=== PATIENT | female | born 1975 | race Caucasian/White ===

== ENCOUNTER 2021-08-16 09:50 | Outpatient (REF) | payer BC, SELFPAY ==
--- NOTE | 2021-08-16 09:00 | PAPFT_PTH ---
PATIENT: Malorie London LOC: [facility] U#:[id number] AGE/SX: 46/F ROOM: RE08/16/[address]: PARKER Faith : 1975 BED: DIS: 08/16/2021 SPEC #: [id number] RECD: 08/16/21 12:56 STATUS: ROBERTO REQ #: [id number] STUART: 08/16/21 09:[address]: Shayy Grider DEPT: [facility] Cytology RECD BY: Janis Hayes ENTERED: 08/16/21 12:56 SP TYPE: PAPFT WYATT DR: None Tissues: 1 - CX/ENDOCX FOR PAP SMEARS Procedures: PAP THIN PREP/UVM Screening HPV DNA PROBE Comments: [id number]
== END 2021-08-16 09:51 | disposition home or self-care (01) ==
LOC: LBN 09:50
PROVIDERS: Visit Provider Nurse Practitioner Family
DX: Z12.4 Encounter for screening for malignant neoplasm of cervix (principal); Z11.51 Encounter for screening for human papillomavirus (HPV); Z87.42 Personal history of other diseases of the female genital tract
CPT/HCPCS: 88142; 87624

== ENCOUNTER → 2021-11-29 00:45 | Outpatient (CLI) | payer BC, SELFPAY ==
--- OUTSIDE RECORDS SUMMARY | 2021-11-29 00:52 | XMS_ITS | Encounter Summary ---
:1975 Author Organization [facility] [place] [address] Care Team Providers Name Role Phone Sydni Blanc MD Primary Care Provider Reason for Visit Reason Comments Positive Screen For Neural Tube Defect Encounter Details Date Type Department Care Team Description 08/29/2010 Office Visit [facility] 3S Shirley Lerma, Other specified complication , antepartum (Primary Dx); [facility] [place] Abnormal findings on screening [place] [phone] [facility]YNECOLOG[facility] [place] [id number] Social History Tobacco Use Types Packs/Day Years Used Date Former Smoker Quit: 04/30/20 10 Alcohol Use Standard Drinks/Week Comments No 0 (1 standard drink = 0.6 oz pure alcoho l) Sex Assigned at Date Recorded Not on file documented as of this encounter Progress Notes Shirley Lerma, [place] - 08/29/2010 3:32 PM EDT 1. Elevated AFP: We discussed the association of elevated maternal serum AFP with neural tube defects and other anomalies, such abdominal wall defects and kidney abnormalities. We reviewed the options available to Malorie, including ultrasound and amniocentesis, and each of their risks, benefits, and limitations. We discussed that 90-95% of fetuses with an open neural tube defect are identifiedby a high resolution ultrasound, and amniocentesis increases the detection up to 98%. After our discussion, Malorie declined amniocentesis. We also discussed the association of an elevated maternal serum AFP and placental insufficiency, which may increase risks for IUGR, delivery, or stillbirth. We recommend that consideration be given to an ultrasound at 30-32 weeks to check growth. 2. Cystic fibrosis: The issue of cystic fibrosis carrier screening was not discussed today as it wasnoted in Malorie's OB chart that she had negative CF carrier screening in 2006. documented in this encounter Plan of Treatment Not on filedocumented as of this encounter Visit Diagnoses Diagnosis Other specified complication, antepartum (646.83) - Primary Other specified complication, antepartum Abnormal findings on screening documented in this encounter Care Teams Managed Security Sales Consultant Relationship Specialty Start Date End Date Sydni Blanc MD PCP - General 08/28/10 10/10/18 [address] [place] [address] documented as of this encounter
--- OUTSIDE RECORDS SUMMARY | 2021-11-29 00:52 | XMS_ITS | Encounter Summary ---
:1975 Author Organization [facility] [place] [address] Care Team Providers Name Role Phone Jake Pinzon APRN Primary Care Provider Reason for Visit Consultation (Routine) - Closed Specialty Diagnoses / Procedures Referred By Contact Refer red To Contact Rheumatology Diagnoses multiple joint pain Jake Pinzon APRN [facility] Rheumatology [facility] [place] [address] [place] [phone] Fax: Referral ID Status Reason Start Date Expiration Date Visits Requ ested Visits Authorized [id number] Closed 09/18/2018 09/18/2019 1 1 Encounter Details Date Type Department Care Team Description 10/11/2018 Office Visit Rheumatology at [facility] Lee Ann Cline, History of elevated antinucl ear antibody (RAMON); [facility] HARISH Arthralgia, [place] [address] Center [phone] [place], [place] [address] Social History Tobacco Use Types Packs/Day Years Used Date Former Smoker Quit: 04/30/20 10 Smokeless Tobacco: Never Used Alcohol Use Standard Drinks/Week Comments No 0 (1 standard drink = 0.6 oz pure alcoho l) Sex Assigned at Date Recorded Not on file documented as of this encounter Last Filed Vital Signs Vital Sign Reading Time Taken Comments Blood Pressure 121/67 10/11/2018 9:52 AM EDT Pulse 63 10/11/2018 9:52 AM EDT Temperature 37.1 ??C (98.7 ??F) 10/11/2018 9:52 AM EDT Respiratory Rate - - Oxygen Saturation 100% 10/11/2018 9:52 AM EDT Inhaled Oxygen Concentration - - Weight 93.4 kg (206 lb) 10/11/2018 9:52 AM EDT Height 160 cm (5' 3) 10/11/2018 9:52 AM EDT Body Mass Index 36.49 10/11/2018 9:52 AM EDT documented in this encounter Progress Notes Lee Ann Cline APRN - 10/11/2018 10:00 AM EDT Rheumatology Outpatient Consultation Note Reason for Consult: The patient is seen at the request of Jake Pinzon APRN for evaluation and treatment of polyarthralgia, myalgia, fatigue Chart review conducted prior to the visit includes review of PMHx, medications, allergies, and prioroffice notes. The most pertinent findings are listed below. August and September 2018 labs OSH: TSH, RF, CCP, CBC, BMP, vit D, hemogram wnl CRP: 0.35, with uln 0.30 RAMON 1:320 speckled History of Present Illness: Malorie Schuster is a 43 y.o. female who presents today for evaluation of aches, pain, fatigue and +RAMON. Extreme fatigue, upset stomach, weak limbs. Sometimes they get tingly and extremely weak and thenit goes away. Shoulders into arms, behind legs into knees, just hurt and ache. PIPs probably hurt the most, both side Sometimes back is fine, sometimes aches in lower back When she abducts her right shoulder, it catches This morning she is pretty good, some morning she wakes up stiff and sore, takes a while to loosen up. Has noticed a swelling in her knees but no warmth or redness. A little nausea at times, not severe She feels worse sometimes in the morning, sometimes at night Her fingers fingers are affected sometimes, just a little stiff, not problems with movement toes feel crampy and sore. This started 4-5 months ago. She notices that when she eats red meat, she feels worse. Her eyes are bloodshot, she feels like she is straining them, needs her glasses no contacts, needs to see eye doctor APAP does make her feel better, she takes 1000mg at a time, so will take 2000mg max per day. 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 Sxs have been getting worse she thinks She falls asleep well Her BF tells her she snores, no h/o sleep study; sometimes refreshed, sometimes not No IBD or IBS More joints than muscles she feels, though muscles can feel weak Not sensitive to touch She wonders if its in her head Rheumatic history (x) means positive Iritis Dactylitis Pleuritis Pericarditis Oral / Nasal Ulcers PE/DVT Spontaneous X 9wks and 6wk Discoid SLE STD Raynaud???s Psoriasis Seizures Anemia Leucopenia Thrombocytopenia Psychosis from a medical condition Health Care Maintenance Date Next Due Influenza vaccine Pneumonia vaccine TB Screen (PPD/QGA) DXA HCQ Eye Exam Viral Hepatitis Screen Review of Systems: X = positive response. Comments are only made for responses that are changed fromprevious, not discussed in HPI, or otherwise require clarification. Systemic Comments 1. Generalized pain X 2. Fatigue/tiredness X 3. Fevers [place] feverish a couple days ago, lasted a couple hours 4. Chills 5. Night sweats 6. Recent weight loss 7. Recent Weight gain Head and neck 8. Headaches 9. Neck pain/stiffness 10. Lymphadenopathy 11. 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 Gritty eyes 14. Eye pain 15. Photophobia 16. Oral sores 17. Xerostomia 18. Alopecia 19. Jaw claudication Cardiopulmonary 20. Chest discomfort 21. Dyspnea 22. Cough 23. Hemoptysis Gastrointestinal 24. Dysphagia 25. Heartburn 26. Nausea X 27. Emesis 28. Abdominal pain 29. Hematochezia 30. Diarrhea 31. Constipation Genitourinary 32. Hematuria 33. Dysuria Musculoskeletal 34. Muscle weakness X sometimes 35. Myalgia 36. Shoulder pain X 37. Raynaud's Neuropsychiatric 38. Paresthesia Mostly fingers and toes, comes and goes 39. Dysesthesia 40. Dizziness/vertigo 41. Anxiety X 42. Depression 43. Cognitive problems Brain fog here and there 44. Initial insomnia 45. Night awakenings X 46. Nonrestorative sleep X sometimes Dermatologic 47. Xerosis cutis 48. Photosensitivity 49. Rash A couple days ago, a couple flat pink dots on forearms that went away after a day PMHX Anxiety SurgHX ACL repair at 17 Ear tubes x3 Family Hx: No family history on file. M: leukemia F: anal CA siblings: (-)RA, (-)lupus, (-)scleroderma, (-)sjogren's, (-)gout Social Hx: Social History Socioeconomic History ??? Marital status: Single Spouse name: None ??? Number of children: None ??? Years of education: None ??? Highest education level: None Occupational History ??? None Social Needs ??? Financial resource strain: None ??? Food insecurity: Worry: None Inability: None ??? Transportation needs: Medical: None Non-medical: None Tobacco Use ??? Smoking status: Former Smoker Last attempt to quit: 04/30/2010 Years since quittin.4 ??? Smokeless tobacco: Never Used Substance and Sexual Activity ??? Alcohol use: No ??? Drug use: No ??? Sexual activity: Yes Partners: Male Lifestyle ??? Physical activity: Days per week: None Minutes per session: None ??? Stress: None Relationships ??? Social connections: Talks on phone: None Gets together: None Attends restorationist service: None Active member of club or organization: None Attends meetings of clubs or organizations: None Relationship status: None ??? Intimate partner violence: Fear of current or ex partner: None Emotionally abused: None Physically abused: None Forced sexual activity: None Other Topics Concern ??? None Social History Narrative ??? 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 The form is scanned into the patient's chart. Physical Examination: BP 121/67 Pulse 63 Temp 37.1 ??C (98.7 ??F) (Oral) Ht 160 cm (5' 3) Wt 93.4 kg (206 lb) SpO2 100% BMI 36.49 kg/m?? General: Alert and oriented. Well developed and nourished. The patient did not appear distressed or uncomfortable. The patient ambulated without difficulty or assistance. Head: Scalp: Appeared normal. Eyes: Mild injection bilaterally, PERRL Oral cavity: Buccal Mucosa showed no ulcer. Tongue did not have an ulcer. Salivary Glands: No xerostomia was observed. No parotid swelling noted. Pharynx: Pharynx did not have an ulcer. Lymph Nodes: Cervical, supraclavicular, submandibular, preauricular, posterior auricular and submental lymph nodes were non-palpable. Lungs: Respiration rhythm and depth was normal. Clear to auscultation without rales or wheezing. Work of breathing was not increased. Cardiovascular system: RRR Abdomen: Auscultation: Abdominal auscultation revealed no abnormalities. Palpation: Abdominal palpation revealed no abnormalities. No hepatosplenomegaly. Musculoskeletal system: (???NML?? means normal; No swelling, warmth, tenderness, loss of range of motion, or deformity as applicable) Hands: MCP???s: NML PIP???s: NML DIP???s: NML, full fist and claw Wrists: Slight ttp bl but no synovitis, nontender ROM Elbows: NML Shoulders: some ttp at ac joint on the L; tender internal rotation on the L, +hurd L, +empty can L, neg speeds yergason on the L; R wnl Cervical Spine: NML Thoracic Spine: NML Lumbosacral Spine: NML Hips: Mild ttp lat hips bl, NML Knees: Crepitus bl, otherwise NML Ankles: NML Feet: Mild ttp at mtps bl, no synovitis, neg mtp compression Nails: No nail pitting, onycholysis or periungual erythema noted. Some trauma at nailbeds but no cap dilation or drop Neurologic: Alert and oriented x3. Sensory & strength exams were normal. Skin: No rash seen Tender points at shoulders, elbows, hips, knees Laboratory Data: August and September 2018 labs OSH: TSH, RF, CCP, CBC, BMP, vit D, hemogram wnl CRP: 0.35, with uln 0.30 RAMON 1:320 speckled Today's pending Studies: L shoulder xray at OSH normal Impression/Recommendations : Malorie Schuster is a 43 y.o. female who presents today with complaint of wide spread arthralgias, fatigue, GI upset since May, in setting of RAMON 1:320 speckled at OSH. Her history is not strongly suggestive of an inflammatory arthritis, and there is no synovitis on exam today. Some ttp at wrists and mtps, but no swelling or warmth noted, and other tenderpoints at upper and lower extremities appreciated. She does not present with other s/sxs to suggest CTD dz e.g. no rash, sclerodactyly, ulcer, hair loss, dry eye or dry mouth, profound or persistent muscle weakness. We discussed that +RAMON can be found in the normal population, and only significant if pt presents with clinical manifestations. CRP very slightly elevated at OSH, could be d/t weight or a variety of other processes. No synovitisor other signs of inflammatory dz on exam so did not repeat today. I did redraw RAMON and CARLO in lightof +RAMON at OSH. I requested the pt let us know if she develops any new signs or sxs. I will call herwith lab results. TSH, RF, CCP, CBC, BMP, vit D, hemogram recently wnl at OSH. PE suggestive of RTC tendinopathy of the L shoulder. Wide spread pain, tenderpoints, fatigue, sleep issues, occasional nausea, anxiety, is suggestive of FMS. We discussed that this a dx of exclusion, but that exercise and sleep are best methods of management. Also briefly discussed some pharm tx options for FMS. Discussed that, should her lab work-up be unremarkable, she can further discuss FMS with PCP, and that PCP can manage. CC: Jake Pinzon APRN documented in this encounter Plan of Treatment Not on filedocumented as of this encounter Procedures Procedure Name Priority Date/Time Associated Diagnosis Comme nts EXTRACTABLE NUCLEAR Routine 10/11/2018 11:20 History of elevat ed Results for this ANTIGEN (CARLO) AB AM EDT antinuclear antibody pro cedure are in (RAMON) the results section. DNA ANTIBODY Routine 10/11/2018 11:20 Results for this (DOUBLE-STRANDED) AM EDT procedure are in the results section. RAMON Routine 10/11/2018 11:20 History of elevated Resu lts for this AM EDT antinuclear antibody procedu re are in (RAMON) the results section. documented in this encounter Results DNA Antibody (Double-Stranded) (10/11/2018 11:20 AM EDT) athologist Signature DNA Ab (DS) Neg Neg [facility] Specimen Anatomical Collection Method Collection Time Receive d Time (Source) Location / / Volume Laterality Blood specimen 10/11/2018 11:20 9 2:20 (specimen) AM EDT PM EDT Resulting Agency Comment Spec In Lab Lee Ann Cline APRN CHEMISTRY ORDERABLES Performing Organization Address City/State/ZIP [place] [address] Extractable Nuclear Antigen (CARLO) Ab (10/11/2018 11:20 AM EDT) Patholo gist Method Time Signature CARLO Ab [facility] Test ?Result ?Flag ??Unit ??RefValue [facility] Ab to Extractable Nuclear Ag Eval,S LABORATORY ??SS-A/Ro Ab, IgG, S ?0.3 ? U ? <1.0 (Negative) ??SS-B/La Ab, IgG, S ?<0.2 ?U ? <1.0 (Negative) ??Sm Ab, IgG, S ? 0.2 ? U ? <1.0 (Negative) ??REGIONAL BUSINESS DEVELOPMENT MANAGER Ab, IgG, S ?<0.2 ?U ? <1.0 (Negative) ??Scl 70 Ab, IgG, S ? <0.2 ?U ? <1.0 (Negative) ??Simona 1 Ab, IgG, S ? <0.2 ?U ? <1.0 (Negative) ?Test Performed by: ?[facility] ?[address] [place] [address] Specimen Anatomical Collection Method Collection Time Receive d Time (Source) Location / / Volume Laterality Blood specimen 10/11/2018 11:20 9 2:08 (specimen) AM EDT PM EDT Resulting Agency Comment Spec In Lab Lee Ann Cline APRN IMMUNOLOGY ORDERABLES Performing Organization Address City/State/ZIP [place] [address] (ABNORMAL) RAMON (LEB/CGP) (10/11/2018 11:20 AM EDT) athologist Signature RAMON Pos at Neg [facility] 1:80 (A) [facility] Comment: Titer seen with Speckled pattern. ??Is s uggestive of autoantibodies to Sm, REGIONAL BUSINESS DEVELOPMENT MANAGER, SCL-70, or SS-B. Specimen Anatomical Collection Method Collection Time Receive d Time (Source) Location / / Volume Laterality Blood specimen 10/11/2018 11:20 9 2:20 (specimen) AM EDT PM EDT Resulting Agency Comment Spec In Lab Lee Ann Cline APRN IMMUNOLOGY ORDERABLES Performing Organization Address City/State/ZIP [place] [address] documented in this encounter Visit Diagnoses Diagnosis History of elevated antinuclear antibody (RAMON) Arthralgia, unspecified joint documented in this encounter Care Teams Sports Book Writer Relationship Specialty Start Date End Date Jake Pinzon APRN PCP - General Family Medicine 10/11/[address] [place] [address] [place] [phone] documented as of this encounter
--- OUTSIDE RECORDS SUMMARY | 2021-11-29 00:52 | XMS_ITS | Encounter Summary ---
:1975 Author Organization [facility] [place] [address] Care Team Providers Name Role Phone Sydni Blanc MD Primary Care Provider Encounter Details Date Type Department Care Team Description 08/29/2010 Hospital Encounter Ultrasound at [facility], DR BRUNO [facility] [place] [address] Alyssa Rangel MD [address] [place], [place] [address] [phone] Social History Tobacco Use Types Packs/Day Years Used Date Former Smoker Quit: 04/30/20 10 Alcohol Use Standard Drinks/Week Comments No 0 (1 standard drink = 0.6 oz pure alcoho l) Sex Assigned at Date Recorded Not on file documented as of this encounter Medications at Time of Discharge Medication Sig Dispensed Refills Start Date End Date vitamin 27 & Take 1 tablet by 0 10/11/2018 [id number] 60 mg mouth daily. (Iron)-1 mg tablet documented as of this encounter Plan of Treatment Not on filedocumented as of this encounter Procedures Procedure Name Priority Date/Time Associated Comments Diagnosis US OB DETAILED Routine 08/29/2010 10:10 AM Result s for this MORPHOLOGY EDT procedure are i n the results section. documented in this encounter Results US OB TARGETED MORPHOLOGY (08/29/2010 10:10 AM EDT) Anatomical Region Laterality Modality Pelvis, Abdomen Ultrasound Specimen (Source) Anatomical Collection Method Collection Time Re ceived Time Location / / Volume Laterality 08/29/2010 10:10 AM EDT Addenda Addendum on 09/12/2010 1:47 PM EDT Addendum Begins ? OBSTETRICS REPORT ? (Corrected Final 09/12/2010 01 :46 pm) Patient Info ID: ?[id number] ?: ??[birth year] (35 yrs) Name: ?MALORIE LOPEZ ?Visit Date: 08/29/2010 09:49 am Performed By Performed By: ?? ARPITA Horan ??Donald campbell Attending: ?Jl GONZALEZ, Cora Perez Referred By: ?BRITTANIE Ochoa MD Accession#: ? [id number] Procedures [facility] - Targeted Morphology - Genetics - ? [id number] Indications Positive quad screen for NTD Evaluation Heart Rate: ??142 ? bpm Cardiac Activity: ??Observed, normal rh ythm Presentation: ?Cephalic Placenta: ?Posterior Nani l P. Cord ?Within Normal Limits Insertion: Amniotic Fluid NÉSTOR FV: ?Normal -------- Biometry -------- BPD: ?47.5 ??mm ?G. Age: ?? 20w 2d OFD: ?58 ??mm HC: ?166.7 ??mm ?G. Age: ?? 19w 3d AC: ?149.3 ??mm ?G. Age: ?? 20w 1d FL: ? 30.6 ??mm ?G. Age: ?? 19w 3d HUM: ?30.6 ??mm ?G. Age: ?? 20w 1d CER: ?19.8 ??mm ?G. Age: ?? 18w 6d NFT: ?3.41 ??mm NB: ?5 ??mm CI: ?81.9 ??% ? 70 - 86 FL/HC: ? 18.4 ??% ? 16.8 - 19.8 HC/AC: ? 1.12 ?1.09 - 1.39 FL/BPD: ?64.4 ??% FL/AC: ? 20.5 ??% ? 20 - 24 Est. FW: ? 315 ??gm ?0 lb 11 oz Gestational Age LMP: ? 21w 2d ?Date : ??04/02/10 ? CLAUDIA: ?? 01/07/11 U/S Today: ? 19w 6d ?CLAUDIA: ?? 01/17/11 Best: ?20w 0d ?? Det. By: ??Early ?CLAUDIA: ?? 01/16/11 ? Ultrasound ? (06/24/10) Targeted Anatomy Central Nervous System Calvarium: ?Within Norm al Limits Intracranial: ? Within Normal Limits Lat. Ventricles: ?Within Normal Limits Cerebellum: ? Within Jody l Limits Choroid Plexus: ? Within Normal Limits Cisterna Magna: ? Within Normal Limits Spine Cervical: ? Visualized Thoracic: ? Visualized Lumbar: ? Visualized Sacral: ? Visualized Head/Neck Face: ? Within No rmal Limits Nuchal Fold: ?Within Jody l Limits Thorax Four Chamber: ? Within Normal Limits Cardiac Motion: ? Normal Rhythm R Outflow Tract: ?Visualized L Outflow Tract: ?Visualized Aortic Arch: ?Visualized Ductal Arch: ?Visualized Cardiac Comstock: ? Visualized Diaphragm: ?Visualized Abdomen Ventral Wall: ? Visualized Stomach: ?Visualized Lt Kidney: ?Visualized Rt Kidney: ?Visualized Bladder: ?Visualized Extremities Lt Humerus: ? Within Nomal Limits Rt Humerus: ? Within Jody l Limits Lt Forearm: ? Within Jody l Limits Rt Forearm: ? Within Jody l Limits Lt Hand: ?Within Nor mal Limits Rt Hand: ?Within Nor mal Limits Lt Femur: ? Within Norm al Limits Rt Femur: ? Within Norm al Limits Lt Lower Leg: ? Within Normal Limits Rt Lower Leg: ? Within Normal Limits Lt Foot: ?Visualized Rt Foot: ?Visualized Other Umbilical Cord: ? 3 vessel cord Genitalia: ?Male Cord Insertion: ? WIthin Normal Limits Cervix Uterus Adnexa Uterus: ? Multiple fibroids, see comments. Left Ovary: ?? Visualized Right Ovary: ??Visualized ------ Myomas ------ Site ? L(cm) ? W(cm) ? D(cm) ? Location Anterior ? 2.1 ? 1.2 ? 1.7 Anterior Left ?5.4 ? 4 .9 ? 5.2 Lateral Anterior ? 1.5 ? 1.8 ? 1.6 Blood Flow ?RI ? PI ?Comments Impression 2nd Trimester - Targeted Morphology- Kincaid mmary Single intrauterine with a ge stational age of 20w 0d based on early ultrasound. Composite age based on the current ultr asound alone is 19w 6d. Amniotic fluid volume is normal. Current growth parameters are consisten t indicating normal growth. Detailed anatomic evaluation was performed and no structural abnormalities are noted. There is a 4.2 x 3.3 x 0.9 cm subchorio erica fluid collection likely a revolving hematoma. Impression: ??No apparent abnorma lity to account for the elevated MSAFP. I ??viewed the images and agree with joni ramos above interpretation. Thank you for allowing us to participat e in the care of MALORIE LOPEZ. Please do not hesitate to call if you have any questions. ?Alfred Parikh MD Electronically Signed Corrected Final Re port ??09/12/2010 01:46 pm Addendum Ends Addendum on 09/12/2010 1:47 PM EDT Addendum Begins ? OBSTETRICS REPORT ? (Corrected Final 09/12/2010 01 :46 pm) Patient Info ID: ?[id number] ?: ??[birth year] (35 yrs) Name: ?MALORIE LOPEZ ?Visit Date: 08/29/2010 09:49 am Performed By Performed By: ?? ARPITA Horan ??Donald campbell Attending: ?Jl GONZALEZ, Cora Perez Referred By: ?BRITTANIE Ochoa MD Accession#: ? [id number] Procedures [facility] - Targeted Morphology - Genetics - ? [id number] Indications Positive quad screen for NTD Evaluation Heart Rate: ??142 ? bpm Cardiac Activity: ??Observed, normal rh [facility] Presentation: ?Cephalic Placenta: ?Posterior Nani l P. Cord ?Within Normal Limits Insertion: Amniotic Fluid NÉSTOR FV: ?Normal -------- Biometry -------- BPD: ?47.5 ??mm ?G. Age: ?? 20w 2d OFD: ?58 ??mm HC: ?166.7 ??mm ?G. Age: ?? 19w 3d AC: ?149.3 ??mm ?G. Age: ?? 20w 1d FL: ? 30.6 ??mm ?G. Age: ?? 19w 3d HUM: ?30.6 ??mm ?G. Age: ?? 20w 1d CER: ?19.8 ??mm ?G. Age: ?? 18w 6d NFT: ?3.41 ??mm NB: ?5 ??mm CI: ?81.9 ??% ? 70 - 86 FL/HC: ? 18.4 ??% ? 16.8 - 19.8 HC/AC: ? 1.12 ?1.09 - 1.39 FL/BPD: ?64.4 ??% FL/AC: ? 20.5 ??% ? 20 - 24 Est. FW: ? 315 ??gm ?0 lb 11 oz Gestational Age LMP: ? 21w 2d ?Date : ??04/02/10 ? CLAUDIA: ?? 01/07/11 U/S Today: ? 19w 6d ?CLAUDIA: ?? 01/17/11 Best: ?20w 0d ?? Det. By: ??Early ?CLAUDIA: ?? 01/16/11 ? Ultrasound ? (06/24/10) Targeted Anatomy Central Nervous System Calvarium: ?Within Norm al Limits Intracranial: ? Within Normal Limits Lat. Ventricles: ?Within Normal Limits Cerebellum: ? Within Jody l Limits Choroid Plexus: ? Within Normal Limits Cisterna Magna: ? Within Normal Limits Spine Cervical: ? Visualized Thoracic: ? Visualized Lumbar: ? Visualized Sacral: ? Visualized Head/Neck Face: ? Within No rmal Limits Nuchal Fold: ?Within Jody l Limits Thorax Four Chamber: ? Within Normal Limits Cardiac Motion: ? Normal Rhythm R Outflow Tract: ?Visualized L Outflow Tract: ?Visualized Aortic Arch: ?Visualized Ductal Arch: ?Visualized Cardiac Comstock: ? Visualized Diaphragm: ?Visualized Abdomen Ventral Wall: ? Visualized Stomach: ?Visualized Lt Kidney: ?Visualized Rt Kidney: ?Visualized Bladder: ?Visualized Extremities Lt Humerus: ? Within Nomal Limits Rt Humerus: ? Within Jody l Limits Lt Forearm: ? Within Jody l Limits Rt Forearm: ? Within Jody l Limits Lt Hand: ?Within Nor mal Limits Rt Hand: ?Within Nor mal Limits Lt Femur: ? Within Norm al Limits Rt Femur: ? Within Norm al Limits Lt Lower Leg: ? Within Normal Limits Rt Lower Leg: ? Within Normal Limits Lt Foot: ?Visualized Rt Foot: ?Visualized Other Umbilical Cord: ? 3 vessel cord Genitalia: ?Male Cord Insertion: ? WIthin Normal Limits Cervix Uterus Adnexa Uterus: ? Multiple fibroids, see comments. Left Ovary: ?? Visualized Right Ovary: ??Visualized ------ Myomas ------ Site ? L(cm) ? W(cm) ? D(cm) ? Location Anterior ? 2.1 ? 1.2 ? 1.7 Anterior Left ?5.4 ? 4 .9 ? 5.2 Lateral Anterior ? 1.5 ? 1.8 ? 1.6 Blood Flow ?RI ? PI ?Comments Impression 2nd Trimester - Targeted Morphology- Kincaid mmary Single intrauterine with a ge stational age of 20w 0d based on early ultrasound. Composite age based on the current ultr asound alone is 19w 6d. Amniotic fluid volume is normal. Current growth parameters are consisten t indicating normal growth. Detailed anatomic evaluation was performed and no structural abnormalities are noted. There is a 4.2 x 3.3 x 0.9 cm subchorio erica fluid collection likely a revolving hematoma. Impression: ??No apparent abnorma lity to account for the elevated MSAFP. I ??viewed the images and agree with joni ramos above interpretation. Thank you for allowing us to participat e in the care of MALORIE LOPEZ. Please do not hesitate to call if you have any questions. ?Alfred Parikh MD Electronically Signed Corrected Final Re port ??09/12/2010 01:46 pm Addendum Ends Narrative 08/29/2010 10:11 AM EDT ? OBSTETRICS REPORT ? (Signed Final 08/29/2010 10 :09 am) Patient Info ID: ?[id number] ?: ??[birth year] (35 yrs) Name: ?MALORIE LOPEZ ?Visit Date: 08/29/2010 09:49 am Performed By Performed By: ?? ARPITA Horan ??Donald campbell Attending: ?Jl GONZALEZ, Cora Perez Referred By: ?BRITTANIE Ochoa MD Accession#: ? [id number] Procedures [facility] - Targeted Morphology - Genetics - ? [id number] Indications Positive quad screen for NTD Evaluation Heart Rate: ??142 ? bpm Cardiac Activity: ??Observed, normal rh ythm Presentation: ?Cephalic Placenta: ?Posterior Nani l P. Cord ?Within Normal Limits Insertion: Amniotic Fluid NÉSTOR FV: ?Normal -------- Biometry -------- BPD: ?47.5 ??mm ?G. Age: ?? 20w 2d OFD: ?58 ??mm HC: ?166.7 ??mm ?G. Age: ?? 19w 3d AC: ?149.3 ??mm ?G. Age: ?? 20w 1d FL: ? 30.6 ??mm ?G. Age: ?? 19w 3d HUM: ?30.6 ??mm ?G. Age: ?? 20w 1d CER: ?19.8 ??mm ?G. Age: ?? 18w 6d NFT: ?3.41 ??mm NB: ?5 ??mm CI: ?81.9 ??% ? 70 - 86 FL/HC: ? 18.4 ??% ? 16.8 - 19.8 HC/AC: ? 1.12 ?1.09 - 1.39 FL/BPD: ?64.4 ??% FL/AC: ? 20.5 ??% ? 20 - 24 Est. FW: ? 315 ??gm ?0 lb 11 oz Gestational Age LMP: ? 21w 2d ?Date : ??04/02/10 ? CLAUDIA: ?? 01/07/11 U/S Today: ? 19w 6d ?CLAUDIA: ?? 01/17/11 Best: ?20w 0d ?? Det. By: ??Early ?CLAUDIA: ?? 01/16/11 ? Ultrasound ? (06/24/10) Targeted Anatomy Central Nervous System Calvarium: ?Within Norm al Limits Intracranial: ? Within Normal Limits Lat. Ventricles: ?Within Normal Limits Cerebellum: ? Within Jody l Limits Choroid Plexus: ? Within Normal Limits Cisterna Magna: ? Within Normal Limits Spine Cervical: ? Visualized Thoracic: ? Visualized Lumbar: ? Visualized Sacral: ? Visualized Head/Neck Face: ? Within No rmal Limits Nuchal Fold: ?Within Jody l Limits Thorax Four Chamber: ? Within Normal Limits Cardiac Motion: ? Normal Rhythm R Outflow Tract: ?Visualized L Outflow Tract: ?Visualized Aortic Arch: ?Visualized Ductal Arch: ?Visualized Cardiac Comstock: ? Visualized Diaphragm: ?Visualized Abdomen Ventral Wall: ? Visualized Stomach: ?Visualized Lt Kidney: ?Visualized Rt Kidney: ?Visualized Bladder: ?Visualized Extremities Lt Humerus: ? Within Nomal Limits Rt Humerus: ? Within Jody l Limits Lt Forearm: ? Within Jody l Limits Rt Forearm: ? Within Jody l Limits Lt Hand: ?Within Nor mal Limits Rt Hand: ?Within Nor mal Limits Lt Femur: ? Within Norm al Limits Rt Femur: ? Within Norm al Limits Lt Lower Leg: ? Within Normal Limits Rt Lower Leg: ? Within Normal Limits Lt Foot: ?Visualized Rt Foot: ?Visualized Other Umbilical Cord: ? 3 vessel cord Genitalia: ?Male Cord Insertion: ? WIthin Normal Limits Cervix Uterus Adnexa Uterus: ? Multiple fibroids, see comments. Left Ovary: ?? Visualized Right Ovary: ??Visualized ------ Myomas ------ Site ? L(cm) ? W(cm) ? D(cm) ? Location Anterior ? 2.1 ? 1.2 ? 1.7 Anterior Left ?5.4 ? 4 .9 ? 5.2 Lateral Anterior ? 1.5 ? 1.8 ? 1.6 Blood Flow ?RI ? PI ?Comments Impression 2nd Trimester - Targeted Morphology- Kincaid mmary Single intrauterine with a ge stational age of 20w 0d based on early ultrasound. Composite age based on the current ultr asound alone is 19w 6d. Amniotic fluid volume is normal. Current growth parameters are consisten t indicating normal growth. Detailed anatomic evaluation was performed and no structural abnormalities are noted. There is a 4.2 x 3.3 x 0.9 cm hemorrhag e I ??viewed the images and agree with joni ramos above interpretation. Thank you for allowing us to participat e in the care of MALORIE LOPEZ. Please do not hesitate to call if you have any questions. ? Cora wilkinson MD Electronically Signed Final Report ?? 10:09 am Procedure Note Cora Parikh MD - 09/12/2010Formattin g of this note might be different from the original. OBSTETRICS REPORT (Signed Final 08/29/2010 10:09 am) Patient Info ID: [id number] : [birth year] (35 yrs ) Name: MALORIE LOPEZ Visit Date: 08/29 09:49 am Performed By Performed By: ARPITA Horan Attending: Cora Parikh MD Referred By: BRITTANIE Ochoa MD Procedures UM - Targeted Morphology - Genetics - [id number] Indications Positive quad screen for NTD Evaluation Heart Rate: 142 bpm Cardiac Activity: Observed, normal rhyt hm Presentation: Cephalic Placenta: Posterior Fundal P. Cord Within Normal Limits Insertion: Amniotic Fluid NÉSTOR FV: Normal -------- Biometry -------- BPD: 47.5 mm G. Age: 20w 2d OFD: 58 mm HC: 166.7 mm G. Age: 19w 3d AC: 149.3 mm G. Age: 20w 1d FL: 30.6 mm G. Age: 19w 3d HUM: 30.6 mm G. Age: 20w 1d CER: 19.8 mm G. Age: 18w 6d NFT: 3.41 mm NB: 5 mm CI: 81.9 % 70 - 86 FL/HC: 18.4 % 16.8 - 19.8 HC/AC: 1.12 1.09 - 1.39 FL/BPD: 64.4 % FL/AC: 20.5 % 20 - 24 Est. FW: 315 gm 0 lb 11 oz Gestational Age LMP: 21w 2d Date: 04/02/10 CLAUDIA: 1 U/S Today: 19w 6d CLAUDIA: 01/17/11 Best: 20w 0d Det. By: Early CLAUDIA: Ultrasound (06/24/10) Targeted Anatomy Central Nervous System Calvarium: Within Normal Limits Intracranial: Within Normal Limits Lat. Ventricles: Within Normal Limits Cerebellum: Within Normal Limits Choroid Plexus: Within Normal Limits Cisterna Magna: Within Normal Limits Spine Cervical: Visualized Thoracic: Visualized Lumbar: Visualized Sacral: Visualized Head/Neck Face: Within Normal Limits Nuchal Fold: Within Normal Limits Thorax Four Chamber: Within Normal Limits Cardiac Motion: Normal Rhythm R Outflow Tract: Visualized L Outflow Tract: Visualized Aortic Arch: Visualized Ductal Arch: Visualized Cardiac Comstock: Visualized Diaphragm: Visualized Abdomen Ventral Wall: Visualized Stomach: Visualized Lt Kidney: Visualized Rt Kidney: Visualized Bladder: Visualized Extremities Lt Humerus: Within Nomal Limits Rt Humerus: Within Normal Limits Lt Forearm: Within Normal Limits Rt Forearm: Within Normal Limits Lt Hand: Within Normal Limits Rt Hand: Within Normal Limits Lt Femur: Within Normal Limits Rt Femur: Within Normal Limits Lt Lower Leg: Within Normal Limits Rt Lower Leg: Within Normal Limits Lt Foot: Visualized Rt Foot: Visualized Other Umbilical Cord: 3 vessel cord Genitalia: Male Cord Insertion: WIthin Normal Limits Cervix Uterus Adnexa Uterus: Multiple fibroids, see comments . Left Ovary: Visualized Right Ovary: Visualized ------ Myomas ------ Site L(cm) W(cm) D(cm) Location Anterior 2.1 1.2 1.7 Anterior Left 5.4 4.9 5.2 Lateral Anterior 1.5 1.8 1.6 Blood Flow RI PI Comments Impression 2nd Trimester - Targeted Morphology- Kincaid mmary Single intrauterine with a ge stational age of 20w 0d based on early ultrasound. Composite age based on the current ultr asound alone is 19w 6d. Amniotic fluid volume is normal. Current growth parameters are consisten t indicating normal growth. Detailed anatomic evaluation was performed and no structural abnormalities are noted. There is a 4.2 x 3.3 x 0.9 cm hemorrhag e I viewed the images and agree with the above interpretation. Thank you for allowing us to participat e in the care of MALORIE LOPEZ. Please do not hesitate to call if you have any questions. Cora Parikh MD Electronically Signed Final Report 08/29 10:09 am Alyssa Rangel MD IMG US OB ORDERABLES documented in this encounter Visit Diagnoses Not on filedocumented in this encounter Care Teams Desk Monitor Relationship Specialty Start Date End Date Sydni Blanc MD PCP - General 08/28/10 10/10/18 [address] [place] [address] documented as of this encounter
--- OUTSIDE RECORDS SUMMARY | 2021-11-29 00:52 | XMS_ITS | Encounter Summary ---
:1975 Author Organization [facility] [place] [address] Care Team Providers Name Role Phone Syndi Blanc MD Primary Care Provider Encounter Details Date Type Department Care Team Description 09/06/2018 Ancillary Procedure Radiology Library at Carine Pinzon APRN [address] [address] [id number] (Wo rk) Social History Tobacco Use Types Packs/Day Years Used Date Former Smoker Quit: 04/30/20 10 Alcohol Use Standard Drinks/Week Comments No 0 (1 standard drink = 0.6 oz pure alcoho l) Sex Assigned at Date Recorded Not on file documented as of this encounter Plan of Treatment Not on filedocumented as of this encounter Procedures Procedure Name Priority Date/Time Associated Diagnosis Comme nts FILM LIBRARY Routine 09/06/2018 12:00 AM Results for this STORAGE ONLY DX EDT procedure ar e in SHOULDER the results section. documented in this encounter Results Film Library- Storage Only DX Shoulder (09/06/2018 12:00 AM EDT) Specimen (Source) Anatomical Location Collection Method / Collectio n Time Received Time / Laterality Volume Narrative CARLYN - 09/18/2018 9:27 PM EDT This exam is auto-finalizing. It's purpo se is for storage only. Jake Pinzon APRN Georgina FILM LIBRARY ORDERABLES Performing Organization Address City/State/ZIP Code Phon e Number [facility] [place] [place] documented in this encounter Visit Diagnoses Not on filedocumented in this encounter Care Teams Ranch Cook Relationship Specialty Start Date End Date Sydni Blanc MD PCP - General 08/28/10 10/10/18 [address] [place] [address] documented as of this encounter
--- OUTSIDE RECORDS SUMMARY | 2021-11-29 00:52 | XMS_ITS | Encounter Summary ---
:1975 Author Organization [facility] Address [place] [id number] Care Team Providers Name Role Phone Sydni Blanc MD Primary Care Provider Reason for Visit Reason Comments Ultrasound Finding Encounter Details Date Type Department Care Team Description 08/29/2010 Office Visit [facility] Cora Parikh MD Abnormal MSAFP [facility] ([facility] DR alpha-fetoprotein), [place] [address] OBSTETRICS & elevated (Primary Dx) [phone] GYNECOLOGY [place] [address] Social History Tobacco Use Types Packs/Day Years Used Date Former Smoker Quit: 04/30/20 10 Alcohol Use Standard Drinks/Week Comments No 0 (1 standard drink = 0.6 oz pure alcoho l) Sex Assigned at Date Recorded Not on file documented as of this encounter Progress Notes Cora Parikh MD - 08/29/2010 10:22 AM EDT I had the opportunity to see the patient at the request of Alyssa Rangel MD for an elevated MSAFP of 2.1 MOM. The patient's has been uncomplicated to date. The patient has had a maternal serumscreen this predicting risk of trisomy 21 at 1:1060, trisomy 18 at 1:18785 and open neuraltube defect at 1:456. I reviewed her medical records. Her medical history is unremarkable. She has no asthma or hypertension. She has had sections. She feels well. Occassional headaches. No other systems are positive. Allergies Allergen Reactions ??? Keflex (Cephalexin) Rash Administrations This Visit None Impression: Unexplained elevated MFASP. Given the minimal elevation I do not believe there is substantial risk of placental insufficiency. Recommendations: No alternations in care. documented in this encounter Miscellaneous Notes Miscellaneous - Bari Arteaga - 10/21/2010 9:42 AM EDT Communication Body - Cora Parikh MD - 08/29/2010 10:32 AM EDT I had the opportunity to see the patient at the request of Alyssa Rangel MD for an elevated MSAFP of 2.1 MOM. The patient's has been uncomplicated to date. The patient has had a maternal serumscreen this predicting risk of trisomy 21 at 1:1060, trisomy 18 at 1:29117 and open neuraltube defect at 1:456. I reviewed her medical records. Her medical history is unremarkable. She has no asthma or hypertension. She has had sections. She feels well. Occassional headaches. No other systems are positive. Allergies Allergen Reactions ??? Keflex (Cephalexin) Rash Administrations This Visit None Impression: Unexplained elevated MFASP. Given the minimal elevation I do not believe there is substantial risk of placental insufficiency. Recommendations: No alternations in care. documented in this encounter Plan of Treatment Not on filedocumented as of this encounter Visit Diagnoses Diagnosis Abnormal MSAFP (maternal serum alpha-fet oprotein), elevated - Primary Abnormal findings on screening documented in this encounter Care Teams Chief Compliance Officer Relationship Specialty Start Date End Date Sydni Blanc MD PCP - General 08/28/10 10/10/18 [address] [place] [address] documented as of this encounter
--- OUTSIDE RECORDS SUMMARY | 2021-11-29 00:52 | XMS_ITS | Encounter Summary ---
:1975 Author Organization [facility] [place] [address] Care Team Providers Name Role Phone Jake Pinzon APRN Primary Care Provider Reason for Visit Reason Onset Date Comments Labs Only 10/15/2018 Encounter Details Date Type Department Care Team Description 10/15/2018 Telephone Rheumatology at [facility] Jake Mitchell [place] [address] Social History Tobacco Use Types Packs/Day Years Used Date Former Smoker Quit: 04/30/20 10 Smokeless Tobacco: Never Used Alcohol Use Standard Drinks/Week Comments No 0 (1 standard drink = 0.6 oz pure alcoho l) Sex Assigned at Date Recorded Not on file documented as of this encounter Miscellaneous Notes Telephone Encounter - Jake Mitchell RN - 10/15/2018 12:21 PM EDT Images from the original note were not included. Lee Ann Cline APRN Gavalakis, Rory A RN Caller: Unspecified (Yesterday, ??4:13 PM) ?? Unremarkable. RAMON has come down to 1:80 which we like. No rheum f/u needed at this time. Contact clinic with new sxs. Patient updated on above, expressed understanding. Telephone Encounter - Jake Mitchell RN - 10/15/2018 10:43 AM EDT Patient calls seeking lab results from Sunday. documented in this encounter Plan of Treatment Not on filedocumented as of this encounter Visit Diagnoses Not on filedocumented in this encounter Care Teams Air Traffic Control Supervisor Relationship Specialty Start Date End Date Jake Pinzon APRN PCP - General Family Medicine 10/11/[address] [place] [address] [place] [address] documented as of this encounter
--- OUTSIDE RECORDS SUMMARY | 2021-11-29 00:53 | XMS_ITS | Encounter Summary ---
:1975 Author Organization [facility] Address [address] [place] [address] Care Team Providers Name Role Phone Unavailable Primary Care Provider Unavailable Encounter Details Date Type Department Care Team Description 11/25/1999 Results Only [facility] - Carlyn Ashraf CNM [facility] [address] [place] [phone] Social History Tobacco Use Types Packs/Day Years Used Date Never Assessed Sex Assigned at Date Recorded Not on file documented as of this encounter Plan of Treatment Not on filedocumented as of this encounter Procedures Procedure Name Priority Date/Time Associated Diagnosis Comme nts CYTOPATHOLOGY Routine 11/25/1999 0:00 EDT Results for this procedure are i n the results section . documented in this encounter Results CYTOPATHOLOGY (11/25/1999 0:00 EDT) Pathology Report: CYTOPATHOLOGY REPORT [facility] Reports generated via electronic interface contain hanny ginal data; however they are lacking the format of the original re port. Caution should be taken when reading/interpreting unfo rmatted reports. Name: ? MALORIE LOPEZ ? Accession #: ? [id number] : ? 1975 (Age: 24) ??F ?Collect Date: ? 11/11 Location: ? [facility] ? Receive Date : ? 11/29/1999 Provider: ?[facility] Copy to: ? Specimen/Source: ?ThinPrep Pap Test, Cervix/ Endocervix Last Menstrual Period: ? 11/26/98 ? Menstrual/ Status: ? Post Previous Gynecologic Pathology: ? Benign cellular changes: Other: ? Additional clinical information: WNL HPV vag int roitus. WNL. ? SPECIMEN ADEQUACY ? Satisfactory for evaluation. GENERAL CATEGORIZATION ? Epithelial Cell Abnormality DESCRIPTIVE DIAGNOSIS ? Atypical squamous el ls of undetermined significance (ASCUS), cannot rule out squamous intraepithelial lesion (JENIFER). RECOMMENDATION ? Recommend clinical correlation and further eval uation, as clinically indicated. ? Document reviewed and electronically signed by: ? Ana Maria Hahn MD ? Report Date: ??12/07/1999 13:36 End of Report Specimen Performing Organization Address City/State/ZIP Code Phon e Number [facility] [address] [place] [address] SERVICES [facility] [address] [place] [address] documented in this encounter Visit Diagnoses Not on filedocumented in this encounter
--- OUTSIDE RECORDS SUMMARY | 2021-11-29 00:53 | XMS_ITS | Encounter Summary ---
:1975 Author Organization [facility] Address [address] [place] [address] Care Team Providers Name Role Phone Unavailable Primary Care Provider Unavailable Encounter Details Date Type Department Care Team Description 04/01/2008 Before PRISM Converted [facility] - Diane Irving, Visit (Maple) Maple conversion AUTOMOTIVE WARRANTY ADMINISTRATOR [address] [place] [address] Social History Tobacco Use Types Packs/Day Years Used Date Never Assessed Sex Assigned at Date Recorded Not on file documented as of this encounter Plan of Treatment Not on filedocumented as of this encounter Procedures Procedure Name Priority Date/Time Associated Diagnosis Comme nts CYTOPATHOLOGY Routine 04/01/2008 0:00 EST Results for this procedure are i n the results section . documented in this encounter Results CYTOPATHOLOGY (04/01/2008 0:00 EST) Pathology Report: CYTOPATHOLOGY REPORT ? [facility] ? LAB Reports generated via Tapstream interface contain original data; ? however they are lacking the format of the original report. ? Caution should be taken when reading/interpreting unformatted reports. ? Name: ? GALO MCCLELLANSAY B ? Accession #: ? [id number] ? : ? 1975 (Age: 32) ??F ?Collect Date: ? 04/01/2008 ? Location: ? [facility] ? Receive Date: ? 04/02/2008 ? Provider: ?SACHIN M RO WLETT AUTOMOTIVE WARRANTY ADMINISTRATOR ? Copy to: ? Specimen/Source: ? Pap Test, Cervix/Endocervix, ThinPrep Imaging System ? with manual evaluation ? Last Menstrual Period: ? 11/10/08 ? Previous Gynecologic Patholo gy: ? Benign cellular changes: 12/ 98 ? ASC-US: Cannot R/O JENIFER 7/00 ? LSIL: 6/07, 3/08 ? HPV: + 3/08 ? Treatment History: ? Colposcopy: 9/00 no lesion n oted ? Other: ? HPVDX - HPV testing requeste d regardless of diagnosis on current ThinPrep Pap ?? test. ? SPECIMEN ADEQUACY ? Satisfactory for Eval uation ? - transformation zone compon ent present ? GENERAL CATEGORIZATION ? Epithelial Cell Abnor mality ? INTERPRETATION ? Squamous Cell Abnorma lity - Atypical squamous cells, undetermined ? significance (ASC-US). ? Shift in tabby present sugge stive of bacterial vaginosis. ? EDUCATIONAL NOTES/RECOMMENDA TIONS ? FA recommends follo wing the 2006 Consensus Guidelines for the Management of Women with Abnormal Cervi amena Cancer Screening Tests (JLGTD, ? 2007;11(4):201-222). ??Conse nsus guidelines are available online at ? www.ASCCP.org. ? Document reviewed and electr onically signed by: ? Mike Murillo, [facility] ? Report Date: ??1125/ 2008 11:01 ? End of Report ? Specimen Performing Organization Address City/State/ZIP Code Phon e Number [facility] [address] [place] [address] SERVICES [facility] [address] [place] [address] documented in this encounter Visit Diagnoses Not on filedocumented in this encounter
--- OUTSIDE RECORDS SUMMARY | 2021-11-29 00:53 | XMS_ITS | Encounter Summary ---
:1975 Author Organization [facility] Address [address] [place] [address] Care Team Providers Name Role Phone None, Provider Primary Care Provider Unavailable Encounter Details Date Type Department Care Team Description 07/20/2014 Results Only [facility]- PRISM Michelle Rangel MD [phone] [place] [address] Social History Tobacco Use Types Packs/Day Years Used Date Never Assessed Sex Assigned at Date Recorded Not on file documented as of this encounter Plan of Treatment Not on filedocumented as of this encounter Procedures Procedure Name Priority Date/Time Associated Diagnosis Comme nts PAP TEST- RESULT Routine 07/20/2014 0:00 EDT Resu lts for this ONLY procedure are i n the results section. documented in this encounter Results PAP TEST- RESULT ONLY (07/20/2014 0:00 EDT) Pathology Report: CYTOPATHOLOGY REPORT [facility] Reports generated via electronic interface contain hanny ginal data; SERVICES however they are lacking the format of the original re port. Caution should be taken when reading/interpreting unfo rmatted reports. Name: ? MALORIE LOPEZ ? Accession #: ? [id number] ? : ? 1975 (Age: 39) ??F ?Collect Da te: ? 07/20/2014 ? Location: ? [facility] ? Receive Date: ? 015 ? Provider: MICHELLE RANGEL MD Copy to: ? Final Report SPECIMEN ADEQUACY ? Satisfactory for Evaluation - transformation zone component present GENERAL CATEGORIZATION ? Negative for Intraepithelial Lesion or Malignan cy ?? Specimen/Source: ??Pap Test, Cervix/Endocervix, ThinPr ep Imaging System with manual evaluation Document reviewed and electronically signed by: ? Bert Watts, LAUREN(ASCP) ? Report ??Date: 07/24/2014 11:46 HPV with Pap Test ? Date Ordered: ? 07/24/2014 ? Status: ?? Signed Out ?Date Complete: ? 07/27/2014 ? By: ??S ystem Interface ? Date Reported: ? 07/27/2014 ? Interpretation RESULT: Negative for HPV. No E6 or E7 mRNA is detected from HPV types 16,18,31,3 3,35, 39,45,51,52,56,58,59,66, and 68 by commercial interior designer media jone amplification. Comments Document reviewed and electronically signed by: ? System Interface ? Report date: 07/27/2014 By the signature above, the attending physician certif ies that he/she has personally conducted a gross and/or microscopic examin ation of the described specimens and rendered or confirmed the above diagnosi s. End of Report Specimen Performing Organization Address City/State/ZIP Code Phon e Number [facility] [address] [place] [address] SERVICES documented in this encounter Visit Diagnoses Not on filedocumented in this encounter Care Teams Boom Worker Relationship Specialty Start Date End Date None, Provider PCP - General 09/01/11 documented as of this encounter
--- OUTSIDE RECORDS SUMMARY | 2021-11-29 00:53 | XMS_ITS | Encounter Summary ---
:1975 Author Organization [facility] Address [address] [place] [address] Care Team Providers Name Role Phone Unavailable Primary Care Provider Unavailable Encounter Details Date Type Department Care Team Description 07/28/2002 Results Only [facility] - Courtney Bernard NP conversion [address] [place] [address] Social History Tobacco Use Types Packs/Day Years Used Date Never Assessed Sex Assigned at Date Recorded Not on file documented as of this encounter Plan of Treatment Not on filedocumented as of this encounter Procedures Procedure Name Priority Date/Time Associated Diagnosis Comme [facility] CYTOPATHOLOGY Routine 07/28/2002 0:00 EST Results for this procedure are i n the results section . documented in this encounter Results CYTOPATHOLOGY (07/28/2002 0:00 EST) Pathology Report: CYTOPATHOLOGY REPORT [facility] Reports generated via electronic interface contain hanny ginal data; however they are lacking the format of the original re port. Caution should be taken when reading/interpreting unfo rmatted reports. Name: ? MALORIE LOPEZ ? Accession #: ? [id number] : ? 1975 (Age: 27) ??F ?Collect Date: ? 07/12 Location: ? [facility] ? Receive Date : ? 07/30/2002 Provider: ?COURTNEY HERRERA BRAIN WAVE TECHNICIAN Copy to: ? Specimen/Source: ?ThinPrep Pap Test, Cervix/ Endocervix Last Menstrual Period: ? 07/03/02 Hormonal/Contraceptive Status: ? Oral contraceptives Previous Gynecologic Pathology: ? ASC-US: Cannot R/o LSIL LSIL: 06/14 Treatment History: ? Colposcopy: no lesion Other: ? Additional clinical information: Pap 07/25/01 negative ? SPECIMEN ADEQUACY ? Satisfactory for Evaluation - transformation zone component present GENERAL CATEGORIZATION ? Negative for Intraepithelial Lesion or Malignan cy ? Document reviewed and electronically signed by: ? LAUREN Sarmiento(ASCP) ? Report Date: ??08/01/2002 11:17 End of Report Specimen Performing Organization Address City/State/ZIP Code Phon e Number [facility] [address] [place] [address] SERVICES [facility] [address] [place] [address] documented in this encounter Visit Diagnoses Not on filedocumented in this encounter
--- OUTSIDE RECORDS SUMMARY | 2021-11-29 00:53 | XMS_ITS | Encounter Summary ---
:1975 Author Organization [facility] Address [address] [place] [address] Care Team Providers Name Role Phone Charles Colette WATERWAY TRAFFIC CHECKER Primary Care Provider Encounter Details Date Type Department Care Team Description 08/11/2011 Results Only [facility]- PRISM Michelle Rangel MD [phone] [place] [address] Social History Tobacco Use Types Packs/Day Years Used Date Never Assessed Sex Assigned at Date Recorded Not on file documented as of this encounter Plan of Treatment Not on filedocumented as of this encounter Procedures Procedure Name Priority Date/Time Associated Diagnosis Comme nts PAP TEST- RESULT Routine 08/11/2011 0:00 EDT Resu lts for this ONLY procedure are i n the results section. documented in this encounter Results PAP TEST- RESULT ONLY (08/11/2011 0:00 EDT) Pathology Report: CYTOPATHOLOGY REPORT [facility] Reports generated via electronic interface contain hanny ginal data; however they are lacking the format of the original re port. Caution should be taken when reading/interpreting unfo rmatted reports. Name: ? MALORIE LOPEZ ? Accession #: ? [id number] ? : ? 1975 (Age: 36) ??F ?Collect Da te: ? 08/11/2011 ? Location: ? [facility] ? Receive Date: ? 012 ? Provider: MICHELLE RANGEL MD Copy to: ? Final Report SPECIMEN ADEQUACY ? Satisfactory for Evaluation - transformation zone component present - scant squamous epithelial component GENERAL CATEGORIZATION ? Negative for Intraepithelial Lesion or Malignan cy ?? Last Menstural Period: 08/03/11 Hormonal/Contraceptive status: Tubal ligation: dalton douglass Previous Gynecologic Pathology: ASC-US: can't R/O JENIFER LSIL: 10/18, 07/19 HPV: 07/19, 09/20 WNL KOREY I HSIL Treatment History: Colposcopy: 06/22 Specimen/Source: ??Pap Test, Cervix/Endocervix, ThinPr ep Imaging System with manual evaluation Document reviewed and electronically signed by: ? Santos Botello, CT(ASCP) ? Report ??Date: 08/17/2011 13:57 HPV with Pap Test ? Date Ordered: ? 08/17/2011 ? Status: ?? Signed Out ?Date Complete: ? 08/22/2011 ? By: ??S ystem Interface ? Date Reported: ? 08/22/2011 ? Interpretation RESULT: Negative for HPV. No E6 or E7 mRNA is detected from HPV types 16,18,31,3 3,35, 39,45,51,52,56,58,59,66, and 68 by fire pot operator media jone amplification. Comments Document reviewed and electronically signed by: ? System Interface ? Report date: 08/22/2011 By the signature above, the attending physician certif ies that he/she has personally conducted a gross and/or microscopic examin ation of the described specimens and rendered or confirmed the above diagnosi s. End of Report Specimen Performing Organization Address City/State/ZIP Code Phon e Number [facility] [address] [place] [address] SERVICES [facility] [address] [place] [address] documented in this encounter Visit Diagnoses Not on filedocumented in this encounter Care Teams Engineering Recruiter Relationship Specialty Start Date End Date Colette Charles NP PCP - General 01/18/11 08/31/11 [address] [facility] [place], [place] [address] documented as of this encounter
--- OUTSIDE RECORDS SUMMARY | 2021-11-29 00:53 | XMS_ITS | Encounter Summary ---
:1975 Author Organization [facility] Address [address] [place] [address] Care Team Providers Name Role Phone Unavailable Primary Care Provider Unavailable Encounter Details Date Type Department Care Team Description 07/26/2007 Results Only [facility] - Shayy Torres od, PARKER conversion [address] [place] [phone] (Wo rk) Social History Tobacco Use Types Packs/Day Years Used Date Never Assessed Sex Assigned at Date Recorded Not on file documented as of this encounter Plan of Treatment Not on filedocumented as of this encounter Procedures Procedure Name Priority Date/Time Associated Comments Diagnosis HPV DETECTION, HIGH Routine 07/26/2007 13:30 Resu lts for this RISK TYPES EDT procedure are i n the results section. CYTOPATHOLOGY Routine 07/26/2007 0:00 Results for this EDT procedure are i n the results section. documented in this encounter Results HUMAN PAPILLOMA VIRUS DNA TEST (07/26/2007 13:30 EDT) Specimen Description Cervix, ThinPrep [facility] Result Positive for one or more of HPV types 16,18,31,33,35,39,45,51,52,56,58,59, or 68. These [facility] high/intermediate risk HPV t ypes are associated with dysplasia and some cervical cancers. LAB Report Status Final [facility] [id number] [facility] Specimen Performing Organization Address City/State/ZIP Code Phon e Number [facility] [address] [place] [address] SERVICES [facility] [address] [place] [address] CYTOPATHOLOGY (07/26/2007 0:00 EDT) Pathology Report: CYTOPATHOLOGY REPORT [facility] Reports generated via electronic interface contain hanny ginal data; however they are lacking the format of the original re port. Caution should be taken when reading/interpreting unfo rmatted reports. Name: ? MALORIE LOPEZ ? Accession #: ? [id number] : ? 1975 (Age: 32) ??F ?Collect Date: ? 07/12 Location: ? [facility] ? Receive Date : ? 07/29/2007 Provider: ?SHAYY HOUSE TRUCK LEASING MANAGER Copy to: ? Specimen/Source: ? ThinPrep Pap Test, Cervix/Endocervix, processed on [employer] ThinPrep Imaging System, with manual evaluation Last Menstrual Period: ? 07/12/07 Menstrual/ Status: ? Post Previous Gynecologic Pathology: ? Benign cellular changes: ASC-US: cannot R/O JENIFER LSIL: 10/26/06 KOREY I Treatment History: ? Colposcopy: no lesion noted, 10/26/06 Other: ? HPVDX - HPV testing requested regardless of diag nosis on current ThinPrep Pap test. ? SPECIMEN ADEQUACY ? Satisfactory for Evaluation - transformation zone component present GENERAL CATEGORIZATION ? Epithelial Cell Abnormality INTERPRETATION ? Squamous Cell Abnormality - Low grade squamous intraepithelial lesion (LSIL). EDUCATIONAL NOTES/RECOMMENDATIONS ? [facility] recommends perez wing the 2006 Consensus Guidelines for the Management of Women with Abnormal Cervical Cancer Screening Tests (JLGTD, 2007;11(4):201-222). ??Consensus guidelines are availa ble online at www.ASCCP.org. ? Document reviewed and electronically signed by: ? Bhupinder Dodge MD ? Report Date: ??08/02/2007 13:05 End of Report Specimen Performing Organization Address City/State/ZIP Code Phon e Number [facility] [address] [place] [address] SERVICES [facility] [address] [place] [address] documented in this encounter Visit Diagnoses Not on filedocumented in this encounter
--- OUTSIDE RECORDS SUMMARY | 2021-11-29 00:53 | XMS_ITS | Encounter Summary ---
:1975 Author Organization [facility] Address [address] [place] [address] Care Team Providers Name Role Phone Unavailable Primary Care Provider Unavailable Encounter Details Date Type Department Care Team Description 10/26/2006 Results Only [facility] - Carlyn Ashraf CNM [facility] [address] [place] [phone] Social History Tobacco Use Types Packs/Day Years Used Date Never Assessed Sex Assigned at Date Recorded Not on file documented as of this encounter Plan of Treatment Not on filedocumented as of this encounter Procedures Procedure Name Priority Date/Time Associated Diagnosis Comme nts CYTOPATHOLOGY Routine 10/26/2006 0:00 EDT Results for this procedure are i n the results section . documented in this encounter Results CYTOPATHOLOGY (10/26/2006 0:00 EDT) Pathology Report: CYTOPATHOLOGY REPORT [facility] Reports generated via electronic interface contain hanny ginal data; however they are lacking the format of the original re port. Caution should be taken when reading/interpreting unfo rmatted reports. Name: ? MALORIE LOPEZ ? Accession #: ? [id number] : ? 1975 (Age: 31) ??F ?Collect Date: ? 10/12 Location: ? [facility] ? Receive Date : ? 10/29/2006 Provider: ?[facility]N [facility] Copy to: ? Specimen/Source: ? ThinPrep Pap Test, Cervix/Endocervix, processed on [employer] ThinPrep Imaging System, with manual evaluation Last Menstrual Period: ? 08/10/06 Menstrual/ Status: ? Previous Gynecologic Pathology: ? Benign cellular changes: ASC-US: can not R/O JENIFER HPV LSIL: 06/14 Treatment History: ? Colposcopy: - no lesion noted Other: ? HPVA - HPV testing requested if ASC-US on the current ThinPrep Pap test. Additional clinical information: 07/13 neg., 07/14 neg., 08/16 neg. ? SPECIMEN ADEQUACY ? Satisfactory for Evaluation - transformation zone component present GENERAL CATEGORIZATION ? Epithelial Cell Abnormality INTERPRETATION ? Squamous Cell Abnormality - Low grade squamous intraepithelial lesion (LSIL). EDUCATIONAL NOTES/RECOMMENDATIONS ? [facility] recommends perez wing the 2001 Consensus Guidelines for the Management of Women with Cervical Cytological Abnormalities (KRUPA Rodríguez,2002;287:2120-9). Management algorithms have b een distributed by [facility] and are available online at www.ASCCP.org. ? Document reviewed and electronically signed by: ? ANSELMO ANAYA MD ? Report Date: ??11/05/2006 09:36 End of Report Specimen Performing Organization Address City/State/ZIP Code Phon e Number [facility] [address] [place] [address] SERVICES [facility] [address] [place] [address] documented in this encounter Visit Diagnoses Not on filedocumented in this encounter
--- OUTSIDE RECORDS SUMMARY | 2021-11-29 00:53 | XMS_ITS | Encounter Summary ---
:1975 Author Organization [facility] Address [address] [place] [address] Care Team Providers Name Role Phone Unavailable Primary Care Provider Unavailable Encounter Details Date Type Department Care Team Description 07/25/2001 Results Only [facility] - Shayy Torres od, ART DEALER [address] [place] [phone] (Wo rk) Social History Tobacco Use Types Packs/Day Years Used Date Never Assessed Sex Assigned at Date Recorded Not on file documented as of this encounter Plan of Treatment Not on filedocumented as of this encounter Procedures Procedure Name Priority Date/Time Associated Diagnosis Comme nts CYTOPATHOLOGY Routine 07/25/2001 0:00 EST Results for this procedure are i n the results section . documented in this encounter Results CYTOPATHOLOGY (07/25/2001 0:00 EST) Pathology Report: CYTOPATHOLOGY REPORT [facility] Reports generated via electronic interface contain hanny ginal data; however they are lacking the format of the original re port. Caution should be taken when reading/interpreting unfo rmatted reports. Name: ? MALORIE LOPEZ ? Accession #: ? [id number] : ? 1975 (Age: 26) ??F ?Collect Date: ? 03/1 08/2001 Location: ? [facility] ? Receive Date : ? 07/29/2001 Provider: ?SHAYY HOUSE ART DEALER Copy to: ? Specimen/Source: ?ThinPrep Pap Test, Cervix/ Endocervix Last Menstrual Period: ? 07/03/01 Hormonal/Contraceptive Status: ? Oral contraceptives Previous Gynecologic Pathology: ? ASC-US: cannot rule out LSIL HPV LSIL: 06/14 Treatment History: ? Colposcopy: no lesion noted ? SPECIMEN ADEQUACY ? Satisfactory for Evaluation - transformation zone component present GENERAL CATEGORIZATION ? Negative for Intraepithelial Lesion or Malignan cy ? Document reviewed and electronically signed by: ? LAUREN Gallardo(ASCP) ? Report Date: ??08/01/2001 09:03 End of Report Specimen Performing Organization Address City/State/ZIP Code Phon e Number [facility] [address] [place] [address] SERVICES [facility] [address] [place] [address] documented in this encounter Visit Diagnoses Not on filedocumented in this encounter
--- OUTSIDE RECORDS SUMMARY | 2021-11-29 00:53 | XMS_ITS | Encounter Summary ---
:1975 Author Organization [facility] Address [address] [place] [address] Care Team Providers Name Role Phone CharlesColette chery WHIZZER HAND Primary Care Provider Encounter Details Date Type Department Care Team Description 08/31/2011 Results Only [facility]- PRISM Michelle Rangel MD [phone] [place] [address] Social History Tobacco Use Types Packs/Day Years Used Date Never Assessed Sex Assigned at Date Recorded Not on file documented as of this encounter Plan of Treatment Not on filedocumented as of this encounter Procedures Procedure Name Priority Date/Time Associated Diagnosis Comme nts SURGICAL PATHOLOGY Routine 08/31/2011 0:00 EDT Re sults for this procedure are i n the results section. documented in this encounter Results SURGICAL PATHOLOGY (08/31/2011 0:00 EDT) Pathology Report: SURGICAL PATHOLOGY REPORT [facility] Reports generated via electronic interface contain hanny ginal data; LAB however they are lacking the format of the original re port. Caution should be taken when reading/interpreting unfo rmatted reports. Name: ? MALORIE LOPEZ ? Accession #: ? [id number] ? : ? 1975 (Age: 36) ??F ? Collect Date: ? 08/31/2011 ? Location: ? [facility] ? Receive Date: ? 012 ? Provider: MICHELLE RANGEL MD Copy to: ? Final Pathologic Diagnosis: ? Uterus, supracervical hysterectomy: 1. ?Uterus: ? - Endometrium: Secretory endometrium. - Myometrium: Submucosal and intramural leiomyoma(ta) and cellular leiomyoma(ta) with focal ??foreign body giant cell reaction and refractile, no npolarizing foreign material. ??See comment. - Serosa: ??No specific pathologic features. ? 2. ?? Fallopian tube: No specific pathologic fe atures. Comment: ? A portion of a cellular leiomyoma demonstrates focal foreign body giant cell reaction with focal ref ractile foreign material. ??The significance of this finding is unclear. Clinical correlation is essential. Stage Setting Painter Apprentice sections of this case have been reviewed at intradepartme ntal consultation conference. (Dr. Romero)/[facility] Document reviewed and electronically signed by: MICKEY ROMERO MD Report ??Date: 09/05/2011 12:42 By the signature above, the attending physician certif ies that he/she has personally conducted a gross and/or microscopic examin ation of the described specimens and rendered or confirmed the above diagnosi s. Specimen(s) Received: ? Uterus, supracervical Clinical History: ? Large submucosal fibroid causing increased endometrial surface area and menorrhagia Gross Description: ? Received in formalin labelled Malorie Lopez and uterus, supracervical is a 270 gram, 18.0 x 14.0 x 4.5 cm aggr egate of morcellated uterine tissue as well as a 3.5 cm in length b y 0.5 cm in diameter portion of unilateral fallopian tube, without fimbria. ??No components of cervix are i dentified and no other adnexal structures are prese nt. ??The serosa is predominantly pink-craig and smooth but focally grover-white and s lightly wrinkled. ??The endometrium is pink-craig, soft and lush and has a maximum t hickness of 0.7 cm. ??The myometrium is pink-craig and finely trabeculated. ??Within the myometrium a 0.4 cm in greatest dimension orange-craig nodule is identified. ??Additionally, appro ximately 35% of the specimen is composed of craig- white, whorled, morcellated nodules. ??Focally, there is endometrium directly over lying fragments of whorled nodule, and thus at least one of these nodules is presumed to be submucosal. ??A reas consistent with separate intramural nodules are also pre sent. ??The cut surfaces are craig-white and whorled with no areas of hemorrhage or necrosis grossly discernible. ??The serosa of the segment of fallopian tube is craig-purple and smooth and the cut surface is craig-white with a central pinpoint lumen. ??Fimbriae are not present. Stage Setting Painter Apprentice sections are submitted as follows: BLOCK LOZANO A1, A2 ?Endometrium to myometrium A3 ?Myometrium and serosa A4 ?Small orange nodule within myometrium A5-A8 ?Craig-white whorled nodules A9 ?Two cross sections of fallopian tube (L. Graves)/mpl End of Report Specimen Performing Organization Address City/State/ZIP Code Phon e Number [facility] [address] [place] [address] SERVICES [facility] [address] [place] [address] documented in this encounter Visit Diagnoses Not on filedocumented in this encounter Care Teams Assisted Living Assistant Relationship Specialty Start Date End Date Colette Charles NP PCP - General 01/18/11 08/31/[address] [place] [address] [address] [place], [place] [id number] documented as of this encounter
--- OUTSIDE RECORDS SUMMARY | 2021-11-29 00:53 | XMS_ITS | Encounter Summary ---
:1975 Author Organization [facility] Address [address] [place] [address] Care Team Providers Name Role Phone Unavailable Primary Care Provider Unavailable Encounter Details Date Type Department Care Team Description 08/30/2004 Results Only [facility] - Shayy Torres od, VETERINARY ANATOMIST [address] [place] [phone] (Wo rk) Social History Tobacco Use Types Packs/Day Years Used Date Never Assessed Sex Assigned at Date Recorded Not on file documented as of this encounter Plan of Treatment Not on filedocumented as of this encounter Procedures Procedure Name Priority Date/Time Associated Diagnosis Comme nts CYTOPATHOLOGY Routine 08/30/2004 0:00 EDT Results for this procedure are i n the results section . documented in this encounter Results CYTOPATHOLOGY (08/30/2004 0:00 EDT) Pathology Report: CYTOPATHOLOGY REPORT [facility] Reports generated via electronic interface contain hanny ginal data; however they are lacking the format of the original re port. Caution should be taken when reading/interpreting unfo rmatted reports. Name: ? MALORIE LOPEZ ? Accession #: ? [id number] : ? 1975 (Age: 29) ??F ?Collect Date: ? 08/12 Location: ? [facility] ? Receive Date : ? 09/01/2004 Provider: ?SHAYY HOUSE VETERINARY ANATOMIST Copy to: ? Specimen/Source: ?ThinPrep Pap Test, Cervix/ Endocervix Last Menstrual Period: ? 07/30/04 Previous Gynecologic Pathology: ? ASC-US: cannot r/o LSIL LSIL: 06/14 Treatment History: ? Colposcopy: no lesions Other: ? Additional clinical information: Negative paps 2001, 2 003 HPVA - HPV testing requested if ASC-US on the current ThinPrep Pap test. ? SPECIMEN ADEQUACY ? Satisfactory for Evaluation - transformation zone component present GENERAL CATEGORIZATION ? Negative for Intraepithelial Lesion or Malignan cy INTERPRETATION ? Reactive cellular lay nges associated with inflammation present (includes repair). ? Document reviewed and electronically signed by: ? CURTIS LUA MD ? Report Date: ??09/09/2004 17:23 End of Report Specimen Performing Organization Address City/State/ZIP Code Phon e Number [facility] [address] [place] [address] SERVICES [facility] [address] [place] [address] documented in this encounter Visit Diagnoses Not on filedocumented in this encounter
--- OUTSIDE RECORDS SUMMARY | 2021-11-29 00:53 | XMS_ITS | Encounter Summary ---
:1975 Author Organization [facility] Address [address] [place] [address] Care Team Providers Name Role Phone Unavailable Primary Care Provider Unavailable Encounter Details Date Type Department Care Team Description 07/09/2008 Before [facility] [address] [facility] [address] [place] [address] [place], [place] [phone] Social History Tobacco Use Types Packs/Day Years Used Date Never Assessed Sex Assigned at Date Recorded Not on file documented as of this encounter Plan of Treatment Not on filedocumented as of this encounter Procedures Procedure Name Priority Date/Time Associated Diagnosis Comme [facility] SURGICAL PATHOLOGY Routine 07/09/2008 0:00 EST Re sults for this procedure are i n the results section. documented in this encounter Results SURGICAL PATHOLOGY (07/09/2008 0:00 EST) Pathology Report: SURGICAL PATHOLOGY REPORT ? [facility] Reports generated via electr EverZero interface contain original data; ? LAB however they are lacking the format of the original report. ? Caution should be taken when reading/interpreting unformatted reports. ? Name: ? JOHN, MALORIE B ? Accession #: ? [id number] ? : ? 1975 (Age: 33) ??F ? Collec t Date: ? 07/09/2008 ? Location: ? [facility] ? R eceive Date: ? 07/09/2008 ? Provider: KATERIN VERMONT MD ? Copy to: LEX BOYER N P ? Final Pathologic Diagnosis: ? A. ?Cervix, con e biopsy: ? 1. ?Transformat ion zone mucosa with prior biopsy changes. ? 2. ? No dysplasia identi fied. ?? See comment. ? B. ?Endocervix, curettage: ? 1. ?Benign squa mous and endocervical mucosa. ? 2. ? No dysplasia identi fied. ? Comment: ? Deeper sections of (A 1)-(A6) have been examined. ??The patient's prior ? endocervical curettage speci men ([id number]) has been reviewed and the presence of high grade squamous intra epithelial lesion in that specimen is confirmed. ? (Dr. Avalos) ? Document reviewed and electr onically signed by: ? JOHN AVALOS MD ? Report ??Date: 07/14/2008 14 :24 ? By the signature above, the attending physician certifies that he/she has ? personally conducted a gross and/or microscopic examination of the described ? specimens and rendered or co nfirmed the above diagnosis. ? Specimen(s) Received: ? A. ?Cervical co ne bx, suture at 12 o'clock (#1) ? B. ? Endocervical curett ings (#2) ? Clinical History: ? Colpo + bx ECC with H JENIFER, H/O abnormal Paps since 2000 ? Gross Description: ? Received in formalin labelled John and cone cervical bx (suture at 12 ?? o'clock) is an oriented maryam ular portion of cervix which measures 1.6 cm from 3 9 o'clock, 1.3 cm from 12 ?? 6 o'clock, and 0.3 cm in depth. ??The specimen is ? partially surfaced by glen gottlieb and there is a 0.8 cm os. ??The endocervical ? margin is inked black and th e ectocervical margin is inked blue. ??The specimen ?? is radially sectioned and en tirely submitted as 12 o'clock in (A1) to 11 o'clock in (A6). ? Received in formalin vickie d John and endocervical curettings are 0.5 cc ?? of red-brown hemorrhagic muc inous material. ??The specimen is entirely submitted as (B) following filtration. ??(Gavino Levi)/mms ? End of Report ? Specimen Performing Organization Address City/State/ZIP Code Phon e Number [facility] [address] [place] [address] SERVICES [facility] [address] [place] [address] documented in this encounter Visit Diagnoses Not on filedocumented in this encounter
--- OUTSIDE RECORDS SUMMARY | 2021-11-29 00:53 | XMS_ITS | Encounter Summary ---
:1975 Author Organization [facility] Address [address] [place] [address] Care Team Providers Name Role Phone Unavailable Primary Care Provider Unavailable Encounter Details Date Type Department Care Team Description 05/16/2010 Results Only [facility] Sydni Blanc MD Laboratory Services - [address] [place] [address] [place] [address] Social History Tobacco Use Types Packs/Day Years Used Date Never Assessed Sex Assigned at Date Recorded Not on file documented as of this encounter Plan of Treatment Not on filedocumented as of this encounter Procedures Procedure Name Priority Date/Time Associated Diagnosis Comme nts CYTOPATHOLOGY Routine 05/16/2010 0:00 EST Results for this procedure are i n the results section . documented in this encounter Results CYTOPATHOLOGY (05/16/2010 0:00 EST) Pathology Report: CYTOPATHOLOGY REPORT ? [facility] ? LAB Reports generated via electr Bunkr interface contain original data; ? however they are lacking the format of the original report. ? Caution should be taken when reading/interpreting unformatted reports. ? Name: ? MALORIE LOPEZ ? Accession #: ? [id number] ? : ? 1975 (Age: 34) ??F ?Collect Date: ? 05/16/2010 ? Location: ? [facility] ? Receive Date: ? 05/17/2010 ? Provider: ?SYDNI MICHAEL L MD ? Copy to: ? Specimen/Source: ? Pap Test, Cervix/Endocervix, ThinPrep Imaging System ? with manual evaluation ? Last Menstrual Period: ? 11/20/10 ? Menstrual/ Status: ? Previous Gynecologic Patholo gy: ? ASC-US: 7/00 can not R/O JENIFER ? LSIL: 6/07, 3/08 ? HPV: 3/08, 5/14/10 WNL ? KOREY I ? HSIL ? Treatment History: ? Colposcopy: 2/09 ? SPECIMEN ADEQUACY ? Satisfactory for Eval uation ? - transformation zone compon ent present ? GENERAL CATEGORIZATION ? Negative for Intraepi thelial Lesion or Malignancy ? Document reviewed and electr onically signed by: ? Carlyn Jarrell, SCT( ASCP) ? Report Date: ??01/07/ 2011 08:31 ? End of Report ? Specimen Performing Organization Address City/State/ZIP Code Phon e Number [facility] [address] [place] [address] SERVICES [facility] [address] [place] [address] documented in this encounter Visit Diagnoses Not on filedocumented in this encounter
--- OUTSIDE RECORDS SUMMARY | 2021-11-29 00:53 | XMS_ITS | Encounter Summary ---
:1975 Author Organization [facility] Address [address] [place] [address] Care Team Providers Name Role Phone None, Provider Primary Care Provider Unavailable Encounter Details Date Type Department Care Team Description 08/17/2021 Lab Requisition [facility] Shayy Grider E ncounter for other Pathology & WOOD CUT ENGRAVER general examination Laboratory Medicine [address] [place], [place] [address] [facility] [phone] [place] [address] Social History Tobacco Use Types Packs/Day Years Used Date Never Assessed Sex Assigned at Date Recorded Not on file documented as of this encounter Plan of Treatment Not on filedocumented as of this encounter Procedures Procedure Name Priority Date/Time Associated Comments Diagnosis PAP TEST Today 08/16/2021 9:00 Encounter for other Resul ts for this EDT general examination procedur e are in the results section. HUMAN PAPILLOMAVIRUS Today 08/16/2021 9:00 Encounter for oth er Results for this (HPV) DETECTION-HIGH EDT general examination procedure are in RISK TYPES the results section. documented in this encounter Results HUMAN PAPILLOMAVIRUS (HPV) DETECTION-HIGH RISK TYPES (08/16/2021 9:00 EDT) Human Papillomavirus NegativeComment: No Negative [facility] (HPV) Detection-High E6 or E7 mRNA is CENTER LABORATOR Y Types detected from HPV SERVICES types 16,18,31,33,35,39,45 ,51,52,56,58,59,66, and 68 by brick unloader tender mediated amplification. Specimen Pap Test - Cervix and/or Endocervix Performing Organization Address City/State/ZIP Code Phon e Number [facility] [address] [place] [address] SERVICES PAP TEST (08/16/2021 9:00 EDT) Specimens A. Cervix and/or [facility] Endocervix , ThinPrep CENTER Imaging System with LABORATORY Manual Evaluation SERVICES Specimen Adequacy Satisfactory for [facility] Evaluation - CENTER transformation zone LABORATORY component present SERVICES General Negative for [facility] intraepithelial [place] lesion or malignancy LABORATORY SERVICES Attestation . [facility] Electronically CENTER signed by JUAN JOSE Botello CT(ASCP) on SERVICES 08/23/2021 at 12 00 Clinical History See below [facility] SERVICES HPV The result for the Human Pap illomavirus (HPV) Detection-High Risk Types is Negative. No E6 or E7 mRNA is detected from HPV types 16,18,31,33,35,39,45,51,52,56,58,59,66, and 68 by brick unloader tender mediated [facility] amplification.Testing was pe rformed on specimen [id number] and was resulted on 08/23/2021 0717 EDT by SREE, LAB INSTRUMENT RESULTS IN [facility] SERVICES Performing Lab [facility] SERVICES Scanned Images [facility] SERVICES Specimen Pap Test - Cervix and/or Endocervix Performing Organization Address City/State/ZIP Code Phon e Number [facility] [address] [place] [address] SERVICES documented in this encounter Visit Diagnoses Diagnosis Encounter for other general examination documented in this encounter Care Teams Java Manager Relationship Specialty Start Date End Date None, Provider PCP - General 09/01/11 documented as of this encounter
--- OUTSIDE RECORDS SUMMARY | 2021-11-29 00:53 | XMS_ITS | Clinical Summary ---
:1975 Author Organization [facility] Address [address] [place] [address] Care Team Providers Name Role Phone None, Provider Primary Care Provider Unavailable Social History Tobacco Use Types Packs/Day Years Used Date Never Assessed Sex Assigned at Date Recorded Not on file Plan of Treatment Health Maintenance Due Date Last Done Comments Hepatitis C Screen 1975 COVID-19 Vaccine (#1) 01/01/1977 Care Teams Ware Tester Relationship Specialty Start Date End Date None, Provider PCP - General 09/01/11
--- OUTSIDE RECORDS SUMMARY | 2021-11-29 00:53 | XMS_ITS | Encounter Summary ---
:1975 Author Organization [facility] Address [address] [place] [address] Care Team Providers Name Role Phone Unavailable Primary Care Provider Unavailable Encounter Details Date Type Department Care Team Description 01/13/2011 Results Only [facility]- PRISM Michelle Rangel MD [phone] [place] [address] Social History Tobacco Use Types Packs/Day Years Used Date Never Assessed Sex Assigned at Date Recorded Not on file documented as of this encounter Plan of Treatment Not on filedocumented as of this encounter Procedures Procedure Name Priority Date/Time Associated Diagnosis Comme nts SURGICAL PATHOLOGY Routine 01/13/2011 0:00 EDT Re sults for this procedure are i n the results section. documented in this encounter Results SURGICAL PATHOLOGY (01/13/2011 0:00 EDT) Pathology Report: SURGICAL PATHOLOGY REPORT ? [facility] Reports generated via Besstech interface contain original data; ? LAB however they are lacking the format of the original report. ? Caution should be taken when reading/interpreting unformatted reports. ? Name: ? JOHN, MALORIE B ? Accession #: ? [id number] ? : ? 1975 (Age: 35) ??F ? Collec t Date: ? 01/13/2011 ? Location: ? [facility] ? R eceive Date: ? 01/13/2011 ? Provider: MICHELLE S BRITTANIE MD ? Copy to: ? Final Pathologic Diagnosis: ? A. ?Portion of fallopian tube, right, resection: ? 1. ?Full cross section obtained, no pathologic features. ? B. ?Portion of fallopian tube, left, resection: ? 1. ?Full cross section obtained, no pathologic features. ? Document reviewed and electr onically signed by: ? CURTIS B AMBAYE MD ? Report ??Date: 01/18/2011 11 :46 ? By the signature above, the attending physician certifies that he/she has ? personally conducted a gross and/or microscopic examination of the described ? specimens and rendered or co nfirmed the above diagnosis. ? Specimen(s) Received: ? A. ?Portion rig ht fallopian tube ? B. ? Portion left fallop ruthie tube ? Clinical History: ? Desires sterility ? Gross Description: ? Received in formalin labelled Malorie Schuster and portion right fallopian tube is a pink-carroll tubular structure measuring 3.0 cm in length with a diameter of 0.5 cm. ??The serosa is p ink-carroll and smooth. ??Cut surface is pink-carroll with a ?? pinpoint lumen. ??Two repres entative cross sections are submitted in (A). ? Received in formalin vickie d Malorie Schuster and portion left fallopian tube is a pink-carroll tubular struct ure measuring 3.0 cm in length with a diameter of ?? 0.5 cm. ??The serosa is carroll- pink and smooth. ??The cut surface is pink-carroll with a pinpoint lumen. ??Two repres entative cross sections are submitted in (B). ( ?? Rui)/mpl ? End of Report ? Specimen Performing Organization Address City/State/ZIP Code Phon e Number [facility] [address] [place] [address] SERVICES [facility] [address] [place] [address] documented in this encounter Visit Diagnoses Not on filedocumented in this encounter
--- OUTSIDE RECORDS SUMMARY | 2021-11-29 00:53 | XMS_ITS | Encounter Summary ---
:1975 Author Organization [facility] Address [address] [place] [address] Care Team Providers Name Role Phone Unavailable Primary Care Provider Unavailable Encounter Details Date Type Department Care Team Description 03/14/1999 Hospital Encounter [facility] Lennie Gustafson[address] [place], [place] [id number] Other Unknown, Provider, [address] [place] [id number] Social History Tobacco Use Types Packs/Day Years Used Date Never Assessed Sex Assigned at Date Recorded Not on file documented as of this encounter Discharge Disposition Disposition Code Departure Means Destination Auto Discharge documented in this encounter Plan of Treatment Pending Results Name Type Priority Associated Diagnoses Date/Ti me CYTOPATHOLOGY Pathology Routine 04/02/2009 0:0 0 EST Scheduled Orders Name Type Priority Associated Diagnoses Order S chedule CYTOPATHOLOGY Pathology Routine ONCE for 1 Occ urrences starting 04/05/2009 documented as of this encounter Procedures Procedure Name Priority Date/Time Associated Comments Diagnosis CYTOPATHOLOGY Routine 04/02/2009 0:00 Results for this EST procedure are i n the results section. SURGICAL PATHOLOGY Routine 06/16/2008 0:00 Result s for this EST procedure are i n the results section. HPV DETECTION, HIGH Routine 04/01/2008 10:00 Resu lts for this RISK TYPES EST procedure are i n the results section. documented in this encounter Results CYTOPATHOLOGY (04/02/2009 0:00 EST) Pathology Report: CYTOPATHOLOGY REPORT ? [facility] ? LAB Reports generated via electr onic interface contain original data; ? however they are lacking the format of the original report. ? Caution should be taken when reading/interpreting unformatted reports. ? Name: ? MALORIE LOPEZ ? Accession #: ? [id number] ? : ? 1975 (Age: 33) ??F ?Collect Date: ? 04/02/2009 ? Location: ? [facility] ? Receive Date: ? 04/05/2009 ? Provider: ?NICOLAS HAYG OOD IMAGING ENGINEER ? Copy to: ? Specimen/Source: ? Pap Test, Cervix/Endocervix, ThinPrep Imaging System ? with manual evaluation ? Last Menstrual Period: ? 10/16/09 ? Previous Gynecologic Patholo gy: ? ASC-US: 7/00 Cannot R/O JENIFER ? LSIL: 6/07, 3/08 ? HPV: 3/08 ? Treatment History: ? Colposcopy: 9/00 ? Miscellaneous treatment: ECC 2/09 ? Other: ? HPVA - HPV testing requested if ASC-US on the current ThinPrep Pap test. ? SPECIMEN ADEQUACY ? Satisfactory for Eval uation ? - transformation zone compon ent present ? - scant squamous epithelial component secondary to excessive mucus ? GENERAL CATEGORIZATION ? Negative for Intraepi thelial Lesion or Malignancy ? Document reviewed and electr onically signed by: ? Carlyn Jarrell, SCT( ASCP) ? Report Date: ??11/30/ 2009 12:41 ? End of Report ? Specimen Performing Organization Address [facility]/State/ZIP Code Phon e Number [facility] [address] [place] [address] SERVICES [facility] [address] [place] [address] SURGICAL PATHOLOGY (06/16/2008 0:00 EST) Pathologist [facility] Pathology Report: SURGICAL PATHOLOGY REPORT ? [facility] Reports generated via electr Study Edge interface contain original data; ? LAB however they are lacking the format of the original report. ? Caution should be taken when reading/interpreting unformatted reports. ? Name: ? MALORIE MCCLELLAN ? Accession #: ? [id number] ? : ? 1975 (Age: 32) ??F ? Collec t Date: ? 06/16/2008 ? Location: ? [facility] ? R eceive Date: ? 06/16/2008 ? Provider: KATERIN VERMONT MD ? Copy to: LEX BOYER N P ? Final Pathologic Diagnosis: ? A. ?Endocervix, curettage: ? 1. 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 ??See comment. ? 2. ? Fragments of benign endocervical tissue. ? B. ?Cervix, 12: 00, biopsy: ? 1. ?Focal low g rade squamous intraepithelial lesion (KOREY I). ??See ? comment. ? C. ?Cervix, 7:0 0, biopsy: ? 1. ?Benign ecto cervical mucosa with underlying Nabothian cyst. ? 2. ? No dysplasia identi fied. ? Comment: ? Deeper levels of spec imen (A) and (B) have been examined. ??Specimen (A) ? shows a detached fragment of dysplasia with features suggestive of high grade ?? squamous intraepithelial les ion (HSIL); however, the detached and tangential ? nature of the section preclu linsey definitive diagnosis. ??This case was reviewed at the intradepartmental consul tation conference. Dr. Cassandra Warren has reviewed ?? this case in consultation an d agrees with the above diagnoses. ??(Dr. Brennan)/mpl ? Document reviewed and electr onically signed by: ? Sandy Brennan, MD ? Report ??Date: 06/22/2008 10 :19 ? By the signature above, the attending physician certifies that he/she has ? personally conducted a gross and/or microscopic examination of the described ? specimens and rendered or co nfirmed the above diagnosis. ? Specimen(s) Received: ? Dysplasia ? Clinical History: ? A. ?ECC ? B. ? Bx 12:00 ? C. ? Bx 7:00 ? Gross Description: ? Received in formalin labelled Corkins and endo cx is a 0.5 cc aggregate of white, focally clear and focally light carroll, mucinous material which is ? submitted entirely as (A). ? Received in formalin vickie d Corkins and cx 12:00 is a 0.3 x 0.2 x 0.1 cm ?? firm, white, piece of tissue admixed with a scanty amount of clear, focally red tinged mucinous material. ?? Submitted entirely as (B). ? Received in formalin vickie d Corkins and cx 7:00 is a 0.4 x 0.3 x 0.2 cm ?? firm, white piece of tissue, which is submitted intact as (C). (J. ? Tessitore)/mpl ? End of Report ? Specimen Performing Organization Address City/State/ZIP Code Phon e Number [facility] [address] [place] [address] SERVICES [facility] [address] [place] [address] HUMAN PAPILLOMA VIRUS DNA TEST (04/01/2008 10:00 EST) Specimen Description Cervix, ThinPrep [facility] Result Positive for one or more of HPV types 16,18,31,33,35,39,45,51,52,56,58,59, or 68. These ARAMBULA Marcos LLEN high/intermediate risk HPV t ypes are associated with dysplasia and some cervical cancers. LAB Report Status Final [facility] 04/16/2008 LAB Specimen Performing Organization Address City/State/ZIP Code Phon e Number [facility] [address] [place] [address] [facility] [address] [place] [address] documented in this encounter Visit Diagnoses Not on filedocumented in this encounter
== END ==
PROVIDERS: Visit Provider Nurse Practitioner Family

== ENCOUNTER 2024-10-28 15:08 | Outpatient (REF) | payer BC, SELFPAY ==
--- NOTE | 2024-10-28 14:50 | PAPFT_PTH ---
PATIENT: Malorie London LOC: [facility] U#:[id number] AGE/SX: 49/F ROOM: RE10/28/[address]: Cassia Harry NP : 1975 BED: DIS: 10/28/2024 SPEC #: [id number] RECD: 10/28/24 17:59 STATUS: ROBERTO REQ #: [id number] STUART: 10/28/24 14:[address]: Piero SPICER,Cassia DEPT: [facility] Cytology RECD BY: Janis Hayes ENTERED: 10/28/24 18:00 SP TYPE: PAPFT OT DR: Unknown,Unknown Tissues: 1 - CX/ENDOCX FOR PAP SMEARS Procedures: PAP THIN PREP/[facility] Screening HPV DNA PROBE Comments: [id number]
== END 2024-10-28 15:09 | disposition home or self-care (01) ==
LOC: LBN 15:08
PROVIDERS: Visit Provider Nurse Practitioner Women's Health
DX: Z12.4 Encounter for screening for malignant neoplasm of cervix (principal)
CPT/HCPCS: 88142; 87624

== ENCOUNTER 2025-01-16 12:07 | Day surgery (SDC) | payer BC, SELFPAY ==
--- NOTE | 2025-01-15 18:32 | W.ANESPRE ---
General Info Date of Service Date Performed: 01/16/25 Height: 5 ft 3 in Weight: 117.027 kg Body Mass Index (BMI): 45.7 Surgical Procedure: Operation Date: 01/16/25 13:35 Proposed Procedure Side Surgeon p Cristian Jeronimo MD Meds Allergies and Home Medications Allergies Allergy/AdvReac Type Severity Reaction Status Date / Time cephalexin monohydrate (From Allergy Intermediate Rash Verified 01/16/25 12:20 Keflex) Home Medication ?Medication ?Instructions ?Recorded cholecalciferol (vitamin D3) 50 50 mcg PO DAILY 10/28/24 mcg (2,000 unit) capsule metoprolol succinate 25 mg 25 mg PO DAILY 10/28/24 tablet,extended release 24 hr bisacodyl 5 mg tablet,delayed 5 mg PO ONCE #4 tabs 01/07/25 release (Dulcolax (bisacodyl)) polyethylene glycol 3350 17 17 g PO ONCE #238 grams 01/07/25 gram/dose oral powder Current Visit Medications: Current Medications Generic Name Dose Route Start Last Admin Trade Name Cecilia PRN Reason Stop Dose Admin Ringer's Solution 1,000 mls @ 80 mls/hr 01/16/25 06:00 IV 01/16/25 23:59 INFUSION EUGENE IV Miscellaneous Supplies 1 each 01/16/25 06:00 Iv Access IV 01/16/25 23:59 DIRECTED EUGENE Sodium Chloride 0 ml 01/16/25 06:00 Normal Saline Flush 10 Ml Syr IV 01/16/25 23:59 PRN PRN Sodium Chloride 0 ml 01/16/25 06:00 Normal Saline 10 Ml Vial IJ 01/16/25 23:59 DIRECTED PRN Sterile Water 0 ml 01/16/25 06:00 Water,Injection,Sterile 10 Ml Vial IJ 01/16/25 23:59 DIRECTED PRN PFSH Active Problems Active Problems: Problem Status Onset Code Hypertension Chronic I10 Medical History Medical History Low vitamin D level Started on Vit D supplement Surgical History Surgical History History of repair of ACL L, injury as a teenager S/P laparoscopic supracervical hysterectomy (09/25/17) for menorrhagia S/P cone biopsy of cervix 2009 Cold knife cone Bx for HSIL Ligation of fallopian tube Tobacco Smoking/Tobacco Use Status: Former Tobacco Use Passive smoking exposure: No Alcohol Alcohol Intake: current Alcohol intake frequency: 0-2 drinks per day Alcohol type: hard liquor Substance Use Substance use: Rarely Substance use type: marijuana Prental History History 7 Para 5 Hx # Term Pregnancies Multiple births Hx # Pregnancies Ectopic pregnancies AB induced Hx Number of Living Children AB spontaneous Vital Signs and Lab Results Vital Signs Most Recent Vital Signs in EMR: Temp Pulse Resp BP Pulse Ox 36.4 C L 76 18 159/89 H 99 01/16/25 12:26 01/16/25 12:26 01/16/25 12:26 01/16/25 12:26 01/16/25 12:26 Anesthesia Assessment and Plan Anesthesia History Personal History: No History of Anesthesia Complications Family History: No Family History of Anesthesia Complications Exercise Tolerance Exercise Tolerance: Metabolic Equivalents>4 Cardiac & Pulmonary Exam Cardiac Exam: Normal S1/S2 Heart Sounds Pulmonary Exam: Clear Bilateral Breath Sounds Implantable Cardiac Device Does patient have a Pacemaker or an ICD?: No Airway Exam Known Difficult Airway: No Mallampati Class: 3 Mouth Opening: Normal (> 3cm) Thyromental Distance: Less than 3 cm Neck Range of Motion: Full ROM Neck Circumference: Normal Teeth Condition: Normal Dentition ASA Classification ASA Score: ASA 3 Emergency Case?: No NPO Status NPO Status: NPO Clears >2 hours, Solids >8 hours Status Status: Negative HCG Anesthesia Plan Resuscitation Status: Full Code Anesthesia Technique: General Anesthesia Airway Planned: Natural Airway Monitors Used: Standard Monitors Preoperative Comments:: 49 yo for colo. Sig PMHx: HTN.
[2025-01-16 12:26] VITALS: BP 159/89; PULSE 76; RESP 18; TEMP 36.4; O2SAT 99
[2025-01-16 12:34] VITALS: BMI 45.7
[2025-01-16] MEDS: Lactated Ringers 1,000 ML 80 ML IV (12:42)
--- NOTE | 2025-01-16 13:11 | BOWEL_PTH ---
PATIENT: Malorie London LOC: [facility] U#:[id number] AGE/SX: 49/F ROOM: RE01/16/[address]: Jay Jeronimo : 1975 BED: DIS: 01/16/2025 SPEC #: [id number] RECD: 01/16/25 13:57 STATUS: ROBERTO RE #: [id number] STUART: 01/16/25 13:[address]: Jay Jeronimo DEPT: Surgical Specimen RECD BY: Carrie De La Vega ENTERED: 01/16/25 13:59 SP TYPE: Bowel OTHR DR: Jake Pinzon Tissues: 1 - BIOPSY BOWEL 2 - BIOPSY BOWEL Procedures: GROSS AND MICRO LEVEL 4 Comments: [id number]
[2025-01-16 13:26] VITALS: BP 123/75; PULSE 74; RESP 16; TEMP 36.3; O2SAT 98
--- NOTE | 2025-01-16 13:32 | W.ANESPOSTOP ---
Postoperative Evaluation Date, Time and Location Date Performed: 01/16/25 Time Performed: 13:32 Patient Location: Day Surgery Unit Vital Signs Most Recent Imported Vital Signs: Most Recent Vital Signs Temp Pulse Resp BP Pulse Ox 36.3 C L 74 16 123/75 98 01/16/25 13:26 01/16/25 13:26 01/16/25 13:26 01/16/25 13:26 01/16/25 13:26 Pain Score Most Recent Pain Score: Most Recent Pain Score Pain Level 0 01/16/25 13:26 Assessment Mental Status: Awake (Alert & Oriented to Patient Baseline) Airway and Respiratory Function: Patent airway with normal (patient baseline) respiratory exam Cardiovascular Function: Hemodynamically Stable Hydration Status: Adequately Hydrated Nausea & Vomiting: No Nausea or Vomiting Pain: Pt. Denies Any Pain Peripheral Nerve Block: Patient did not receive a nerve block
[2025-01-16 13:53] VITALS: BP 140/81; PULSE 60; RESP 16; TEMP 36.4; O2SAT 98
--- NOTE | 2025-01-16 14:02 | W.COLOREPORT ---
Date of service: 01/16/25 Time of Service: 14:02 Colonoscopy Report Procedure Description: PROCEDURES PERFORMED: 1. Colonoscopy with hot snare polypectomy 2. Cold forceps biopsy 3. Ablation/fulguration/destruction of polyp base 4. Endoscopic clip placement x 2 PREOPERATIVE DIAGNOSIS: Screening colonoscopy, family history POSTOPERATIVE DIAGNOSIS: Rectal polyp, scattered diverticulosis SURGEON: Maggie Jeronimo MD INDICATION FOR PROCEDURE: the patient is a 49-year-old woman whose father has had colon cancer twice, and is now dealing with recurrent cancer. She has never had a colonoscopy. She has no symptoms of concern. FINDINGS: Normal terminal ileum. Polyps: In the distal rectum, at about 10 cm, a relatively large 7-10 mm pedunculated polyp was removed with hot snare technique. All of the base tissue around this polyp had a polypoid appearance to it and had biopsy with cold forceps and then ablated/destroyed the visible polypoid tissue with the tip of the hot snare. The resulting mucosal defect from this was covered by approximating the edges using 2 endoscopic clips. There were scattered diverticular changes present throughout the entire colon but these were very minimal overall with only a few being seen. No obvious hemorrhoid disease. SURVEILLANCE interval/FOLLOW-UP: Repeat full colonoscopy in 3 years. Will recommend repeat sigmoidoscopy assessment of the site in 3 months if cold forceps biopsies show polypoid tissue. SPECIMENS: Yes EBL: Minimal COMPLICATIONS: None QUALITY of prep: Excellent Procedure in detail: The patient gave written consent and was in agreement with the indications, the potential risks as well as the benefits of the procedure. They were taken to the endoscopy suite and laid in the left lateral decubitus position. A timeout was performed and anesthesia was administered which was tolerated well. I started the procedure. Digital rectal and visual examination was performed and grossly within normal limits. A well-lubricated flexible colonoscope was then introduced and passed without any notable difficulty all the way to the cecum identified by the ileocecal valve and the appendiceal orifice. The terminal ileum was briefly, superficially intubated and looked normal. The scope was then slowly withdrawn with the above-noted findings. The patient tolerated the procedure well and was taken to the PACU in hemodynamically stable condition.
--- NOTE | 2025-01-16 14:02 | W.PM.DSUDISC ---
Date of service: 01/16/25 Discharge Plan Disposition Patient Disposition: Home Condition: Good Discharge Details Attending Provider: Jay Jeronimo Primary Care Provider: Jake Pinzon Home Meds and New Rx's Prescriptions: No Action cholecalciferol (vitamin D3) 50 mcg (2,000 unit) capsule 50 mcg PO DAILY metoprolol succinate 25 mg tablet extended release 24 hr 25 mg PO DAILY bisacodyl [Dulcolax (bisacodyl)] 5 mg tablet,delayed release (DR/EC) 5 mg PO ONCE Qty: 4 0RF Rx Instructions: Take per colonoscopy instructions provided by ordering providers office polyethylene glycol 3350 17 gram/dose powder 17 g PO ONCE Qty: 238 0RF Rx Instructions: Take per colonoscopy instructions provided by ordering providers office Discharge Instructions Additional Instructions: FINDINGS: A large polyp was found and removed today. It is nothing to worry about since it got removed. As we discussed, I did assess the area around it with biopsies to ensure there is no other residual polyp growing near it. Those biopsy results will dictate if and when we need to do a repeat procedure. Under all other circumstances you will need to do another colonoscopy in 3 years. However, we may need to do another one sooner if those biopsies show anything. Stand Alone Forms: Anesthesia Discharge Inst., Colonoscopy Post Instructions, Sachin Bullard (DSU) Activity:: Activity as Tolerated Diet:: As Tolerated
== END 2025-01-16 14:30 | disposition home or self-care (01) ==
LOC: SUR 12:08
PROVIDERS: PCP Nurse Practitioner Family; Visit Provider Student in an Organized Health Care Education/Training Program
PROC: 0DJD8ZZ Inspection of Lower Intestinal Tract, Via Natural or Artificial Opening Endoscopic (ICD-10-PCS; CPT 45378; principal; 2025-01-16 13:30)
DX: Z12.11 Encounter for screening for malignant neoplasm of colon (principal); Z80.0 Family history of malignant neoplasm of digestive organs; I10 Essential (primary) hypertension; D12.8 Benign neoplasm of rectum
CPT/HCPCS: 45388; 88305; J2003; J2704